=== PATIENT | male | born 1960 | race Caucasian/White ===

== ENCOUNTER 2018-12-13 09:08 | Emergency (ER) | payer MEDICARE, MEDICAID ==
[~2018-12-13] VITALS: Ht 172.7 cm; Wt 70.0 kg
[~2018-12-13 09:08] MED LIST: HYDR-4353 PO; INSU100V9 SQ; MORP-92 PO
--- NOTE | 2018-12-13 09:30 | NUR ---
patient was on ladder about 10 feet high using a pole saw when a branch fell and hit ladder out from underneath him. 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
--- NOTE | 2018-12-13 09:50 | NUR ---
discussed pain control with md; order for ibuprofen received
--- NOTE | 2018-12-13 09:51 | NUR ---
ICE PACKS TO RIGHT AND LEFT ANKLE AND LEFT KNEE: ICE PACKS PLACED DR AMOS INFORMED THAT PATIENT IS NOW COMPLAINING OF LEFT KNEE PAIN
[2018-12-13] MEDS ORDERED: ibuprofen tablet 400 MG TABLET PO ONE (09:55)
[2018-12-13] MEDS ORDERED: ibuprofen 200mg tablet PO ONE (10:00)
--- NOTE | 2018-12-13 10:32 | NUR ---
orthotist prosthetist here to place homero splint to right lower leg; left leg to be placed in boot and crutches provided: patient has "lots of experience" with crutches patient has strong regular pulses bilareally in his feet: both dp and pt. patient able to wiggle toes on both feet and discriminate betweenfeet and areas of each foot despite his neuropathy
[2018-12-13] MEDS ORDERED: ACET-3068 PO (11:01)
[2018-12-13 11:20] VITALS: BP 141/79
== END 2018-12-13 11:27 | disposition home or self-care (01) ==
LOC: ER 09:09
DX: S82.851A Displaced trimalleolar fracture of right lower leg, initial encounter for closed fracture (principal); S82.892A Other fracture of left lower leg, initial encounter for closed fracture; E78.00 Pure hypercholesterolemia, unspecified; I10 Essential (primary) hypertension; K21.9 Gastro-esophageal reflux disease without esophagitis; E11.9 Type 2 diabetes mellitus without complications; F32.9 Major depressive disorder, single episode, unspecified; Z90.49 Acquired absence of other specified parts of digestive tract; Z87.11 Personal history of peptic ulcer disease; Z91.030 Bee allergy status; Z79.899 Other long term (current) drug therapy; Z79.4 Long term (current) use of insulin; W11.XXXA Fall on and from ladder, initial encounter; Y93.89 Activity, other specified; Y92.89 Other specified places as the place of occurrence of the external cause; Y99.8 Other external cause status
CPT/HCPCS: 29515; 73610; 99284

== ENCOUNTER 2020-09-01 14:45 | Emergency (ER) | payer MEDICARE, MEDICAID ==
[~2020-09-01] VITALS: Ht 170.2 cm; Wt 70.0 kg
[2020-09-01 14:57] VITALS: BP 101/54
[2020-09-01] MEDS ORDERED: LIDOcaine 1% W/epiNEPHrine 1:200,000 10ml vial IJ ONE (15:55)
== END 2020-09-01 16:45 | disposition home or self-care (01) ==
LOC: ER 14:47
DX: S81.012A Laceration without foreign body, left knee, initial encounter (principal); E11.42 Type 2 diabetes mellitus with diabetic polyneuropathy; E78.00 Pure hypercholesterolemia, unspecified; I10 Essential (primary) hypertension; K21.9 Gastro-esophageal reflux disease without esophagitis; F17.200 Nicotine dependence, unspecified, uncomplicated; F32.9 Major depressive disorder, single episode, unspecified; Z86.19 Personal history of other infectious and parasitic diseases; Z87.11 Personal history of peptic ulcer disease; Z90.89 Acquired absence of other organs; Z72.89 Other problems related to lifestyle; Z91.030 Bee allergy status; Z79.899 Other long term (current) drug therapy
CPT/HCPCS: 12002; 99282

== ENCOUNTER 2021-07-24 03:08 | Inpatient (IN) | payer MEDICARE, MEDICAID ==
[~2021-07-24] VITALS: Ht 172.7 cm; Wt 80.5 kg
[2021-07-24] VITALS (35 sets, daily range): BP systolic 73–165; BP diastolic 41–78
[2021-07-24] MEDS ORDERED: normal saline 1000ml 1,000 ML IV ONE (03:25)
[2021-07-24] MEDS ORDERED: CefTRIAXone/D5W-Rocephin 1gm 50 ML IV ONE (03:30)
[2021-07-24 03:46] LABS: BASOPHILS # (AUTO) 0.1 X10'3 (0-0.2); BASOPHILS % (AUTO) 0.3 % (0-1)
[2021-07-24 03:47] LABS: APTT 64 SECONDS (22-32)
[2021-07-24 03:48] LABS: ALANINE AMINOTRANSFERASE 19 U/L (12-78); ALBUMIN 2.4 G/DL (3.4-5.0); ALKALINE PHOSPHATASE 71 IU/L (46-116); ANION GAP 37 (8-16); ASPARTATE AMINO TRANSFERASE 20 U/L (10-37); BILIRUBIN,TOTAL 0.7 MG/DL (0.1-1.0); BLOOD UREA NITROGEN 69 MG/DL (7-18); BUN/CREATININE RATIO 23.6 (5.4-32.0); CALCIUM 8.5 MG/DL (8.5-10.1); CHLORIDE 77 MMOL/L (99-107); CREATININE 2.92 MG/DL (0.60-1.10); EOSINOPHILS % (AUTO) 0.2 % (0-6); LYMPHOCYTES # (AUTO) 1.4 X10'3 (1.1-4.8); LYMPHOCYTES % (AUTO) 6.5 % (21-51); MONOCYTES # (AUTO) 1.9 X10'3 (0-0.9); MONOCYTES % (AUTO) 8.3 % (2-12); NEUTROPHILS # (AUTO) 18.9 X10'3 (1.8-7.7); NEUTROPHILS % (AUTO) 84.7 % (42-75); PLATELET COUNT 172 X10'3 (140-440); POTASSIUM 4.2 MMOL/L (3.5-5.1); SODIUM 121 MMOL/L (135-145); TOTAL PROTEIN 4.8 G/DL (6.4-8.2); WHITE BLOOD COUNT 22.4 X10'3 (4.5-11.0); eGFR 22 ML/MIN
[2021-07-24] MEDS ORDERED: NORepinephrine inj. 8 MG in dextrose 5%-water 242 ML IV SCH (03:55)
[2021-07-24] MEDS ORDERED: NORepinephrine 8mg/ 250ml NS 250 ML IV SCH (04:10)
[2021-07-24 04:15] LABS: GLUCOSE 1218 MG/DL (70-104); TOTAL CARBON DIOXIDE 6.9 MMOL/L (24-32)
[2021-07-24] MEDS ORDERED: potassium CL 20mEq in D5-1/2NS 1,000 ML IV PRN (04:15)
[2021-07-24 04:16] LABS: HEMATOCRIT 14.2 % (42.0-52.0); HEMOGLOBIN 4.6 g/dl (14.0-17.9); MEAN CORPUSCULAR HEMOGLOBIN 24.3 PG (27.0-31.0); MEAN CORPUSCULAR HGB CONC 32.3 g/dL (33.0-36.5); MEAN CORPUSCULAR VOLUME 75.1 FL (78-98); RED CELL DISTRIBUTION WIDTH 18.2 % (11.5-14.5)
[2021-07-24 04:32] LABS: ABG BASE EXCESS -26.9 mmol/L (-2.0-2.0); ABG HCO3 5.2 mmol/L (22.0-26.0); ABG OXYGEN SATURATION 99.7 % (94-97); ABG PCO2 (T) 35.3 mmHg (35.0-48.0); ABG PO2 (T) 446.5 mmHg (75.0-100.0); ALLEN'S TEST POSITIVE; FCOHb 1.4 % (0.0-3.9); FMetHb 0.7 % (0.0-1.5); FO2Hb 97.6 % (94-97); PATIENT TEMPERATURE 36.1; PEEP 5 cm H2O; RESPIRATORY RATE 14 b/min; TIDAL VOLUME 450 mL; TOTAL HEMOGLOBIN 4.9 G/dl (14.0-18.0)
[2021-07-24] MEDS ORDERED: sodium bicarbonate (8.4%) inj. 1 MEQ/ML ML IV ONE (04:45)
[2021-07-24] MEDS ORDERED: iohexol 350MG/ML 100ml bottle IV ONE (04:46)
[2021-07-24] MEDS: normal saline 1000ml 1,000 ML IV SCH ×2 (04:52→05:28)
[2021-07-24] MEDS ORDERED: etomidate 2mg/ml inj. IV ONE (05:00)
[2021-07-24] MEDS ORDERED: rocuronium 10mg/ml inj IV ONE ×2 (05:00→08:00)
[2021-07-24] MEDS ORDERED: FLO0.4C PO (05:05)
[2021-07-24] MEDS ORDERED: HYDR-3972 PO (05:05)
[2021-07-24] MEDS ORDERED: OMEP20CA15 PO (05:05)
[2021-07-24] MEDS ORDERED: METF-438 PO (05:05)
[2021-07-24] MEDS ORDERED: LISI5TAB22 PO (05:05)
[2021-07-24] MEDS: sodium bicarbonate (8.4%) inj. 150 MEQ in sodium chloride 0.45% 1,000 ML IV SCH ×3 (05:11→19:31)
[2021-07-24] MEDS: midazolam 100mg in NS 100ml 100 ML IV PRN ×2 (05:15→17:04)
[2021-07-24] MEDS: FENTANYL-0.9 % NACL/PF 100 ML IV PRN ×4 (05:15→23:15)
[2021-07-24] MEDS: octreotide inj. 500 MCG in normal saline 100ml IV soln 100 ML IV SCH ×4 (05:17→23:34)
[2021-07-24] MEDS: insulin regular, human U-100 3ml vial - multi-dose IV PRN ×2 (05:54→12:39)
[2021-07-24] MEDS ORDERED: pantoprazole 40MG/NS 100ML BAG 100 ML IV ONE ×2 (05:55→08:00)
[2021-07-24] MEDS: Insulin Reg/NS 100units/100mL 100 ML IV SCH ×2 (06:02→14:09)
[2021-07-24 06:27] LABS: ANISOCYTOSIS 2+; PLATELET ESTIMATE NORMAL; POIKILOCYTOSIS 1+; TOTAL CELLS COUNTED 100
[2021-07-24 06:28] LABS: ELLIPTOCYTES FEW
--- NOTE | 2021-07-24 06:45 | NUR ---
ASSUMED CARE OF PT.
--- NOTE | 2021-07-24 07:15 | NUR ---
AT BEDSIDE TO PLACE DREW CATH
--- NOTE | 2021-07-24 07:59 | NUR ---
PT SVT 184. VERBAL ORDER ADENOSINE 6MG PER DR. SIMMONS.
--- NOTE | 2021-07-24 07:59 | NUR ---
ADENOSINE 6MG GIVEN HR 184
[2021-07-24] MEDS ORDERED: sod chloride 0.9% 10ml flush syringe IV ONE ×2 (08:00)
[2021-07-24] MEDS ORDERED: glucagon, human recombinant 1mg kit SUBCUT PRN (08:00)
[2021-07-24] MEDS ORDERED: adenosine 3mg/ml 2ml vial IV ONE (08:00)
[2021-07-24] MEDS ORDERED: morphine 4 MG/ML inj SYRINge IV PRN (08:00)
[2021-07-24] MEDS ORDERED: magnesium hydroxide 30ml (MOM) UD suspension PO PRN (08:00)
[2021-07-24] MEDS ORDERED: ondansetron/PF 4mg/2ml inj IV PRN (08:00)
[2021-07-24] MEDS ORDERED: dextrose 50%-water 50ml dispensing syringe IV PRN ×2 (08:00)
[2021-07-24] MEDS ORDERED: sodium bicarbonate (8.4%) 1 mEq/ml syringe ONE (08:00)
[2021-07-24] MEDS ORDERED: famotidine/PF 10 mg/ml inj IV SCH (08:00)
[2021-07-24] MEDS ORDERED: LIDOcaine 2% 10ml TOPICAL JELLY (Urojet) TP ONE (08:00)
[2021-07-24] MEDS ORDERED: MESSAGE TO PHARMACY PO ONE (08:00)
[2021-07-24] MEDS ORDERED: potassium Cl 20 mEq SR tablet PO PRN (08:00)
[2021-07-24] MEDS ORDERED: morphine 2 MG/ML inj. syringe IV PRN (08:00)
[2021-07-24] MEDS ORDERED: DEXTROSE 15 GM of carb/4 tabs (each vial/BOTTLE has 4 tablets) PO PRN ×2 (08:00)
[2021-07-24] MEDS: K and/or MAG REPLACEMENT MC SCH (08:00)
[2021-07-24] MEDS ORDERED: acetaminophen 325mg tablet PO PRN (08:00)
[2021-07-24] MEDS ORDERED: etomidate 2mg/ml inj. ONE (08:00)
[2021-07-24] MEDS ORDERED: NORepinephrine 1 mg/ml inj IV ONE (08:00)
--- NOTE | 2021-07-24 08:02 | NUR ---
LAB CALLED TO INFORM THAT PATIENTS GLUCOSE IS OVER 1000, NURSE MADE AWARE DURING AN EMERGENT TIME IN THE ROOM, WILL COQUILLE BACK TO COMMUNICATE AGAIN
--- NOTE | 2021-07-24 08:19 | NUR ---
LAB CALLED WITH ACCURATE GLUCOSE AT 1040, NURSE IS AWARE
[2021-07-24] MEDS ORDERED: EPOETIN ALFA-EPBX 20,000 UNIT/ML 1 ML MDV IV ONE (08:40)
[2021-07-24] MEDS ORDERED: albumin (human) 25% 100ml IV 100 ML IV PRN (08:40)
[2021-07-24] MEDS ORDERED: heparin 1,000 units/ml 10ml inj HE ONE ×2 (08:45)
--- NOTE | 2021-07-24 09:00 | NUR ---
0900 Received patient from ER. Placed patient on continuous analytics leader. ST noted along low BP. Increased patient's Levophed to 0.8 mcg/min. Patient is unarousable on minimal sedation. Patient is intubated on AC mode with O2 sats of 100%. OGT place on LWIS with coffee ground drainage. Tiwari tp gravity with yellow drainage. Bed in lowest position, all safety measures in place. 0930 Dr. Wren at bedside ready fro Toshia insertion due to low BP,and maxed out on pressors. 0945 race steward at bedside ready for dialysis. 1130 Patient's Family at bedside, MD update family and aware of patient's status. 0100 Patient's vitals stabilizing. 0130 GI MD at bedside to evaluate patient, planning on scoping patient in AM if stable. 0200 Continue monitoring patient's BG 0500 Patient's vitals stabilizing.
[2021-07-24] MEDS ORDERED: epiNEPHrine 1 mg/ml inj ONE (10:20)
[2021-07-24 10:37] LABS: ABG BASE EXCESS -15.5 mmol/L (-2.0-2.0); ABG HCO3 13.8 mmol/L (22.0-26.0); ABG OXYGEN SATURATION 98.8 % (94-97); ABG PCO2 (T) 48.3 mmHg (35.0-48.0); ABG PO2 (T) 215.6 mmHg (75.0-100.0); FCOHb 0.3 % (0.0-3.9); FMetHb 0.4 % (0.0-1.5); FO2Hb 98.1 % (94-97); PEEP 5 cm H2O; RESPIRATORY RATE 14 b/min; TIDAL VOLUME 450 mL; TOTAL HEMOGLOBIN 9.1 G/dl (14.0-18.0)
[2021-07-24 11:09] LABS: BASOPHILS # (AUTO) 0.1 X10'3 (0-0.2); BASOPHILS % (AUTO) 0.2 % (0-1); EOSINOPHILS % (AUTO) 0 % (0-6); LYMPHOCYTES # (AUTO) 1.3 X10'3 (1.1-4.8); LYMPHOCYTES % (AUTO) 3.8 % (21-51); MEAN PLATELET VOLUME 8.8 FL (7.4-10.4); MONOCYTES # (AUTO) 1.5 X10'3 (0-0.9); MONOCYTES % (AUTO) 4.4 % (2-12); NEUTROPHILS # (AUTO) 31.8 X10'3 (1.8-7.7); NEUTROPHILS % (AUTO) 91.6 % (42-75); PLATELET COUNT 120 X10'3 (140-440); RED BLOOD COUNT 3.13 X10'6 (4.70-6.10)
[2021-07-24] MEDS ORDERED: phenylephrine inj 50 MG in normal saline 250ml IV soln 250 ML IV SCH (11:20)
[2021-07-24 11:23] LABS: ALBUMIN 2.4 G/DL (3.4-5.0); ANION GAP 32 (8-16); BLOOD UREA NITROGEN 65 MG/DL (7-18); CHLORIDE 82 MMOL/L (99-107); MAGNESIUM 2.8 MG/DL (1.5-2.4); SODIUM 125 MMOL/L (135-145); eGFR 20 ML/MIN
[2021-07-24 11:29] LABS: HEMATOCRIT 26.4 % (42.0-52.0); HEMOGLOBIN 8.3 g/dl (14.0-17.9); MEAN CORPUSCULAR VOLUME 84.2 FL (78-98)
[2021-07-24 11:30] LABS: MEAN CORPUSCULAR HEMOGLOBIN 26.4 PG (27.0-31.0); MEAN CORPUSCULAR HGB CONC 31.4 g/dL (33.0-36.5); RED CELL DISTRIBUTION WIDTH 18.6 % (11.5-14.5)
[2021-07-24 11:31] LABS: WHITE BLOOD COUNT 34.8 X10'3 (4.5-11.0)
[2021-07-24 11:43] LABS: PHOSPHORUS 12.8 MG/DL (2.3-4.5)
[2021-07-24 11:46] LABS: GLUCOSE 1005 MG/DL (70-104); TOTAL CARBON DIOXIDE 10.9 MMOL/L (24-32)
[2021-07-24] MEDS: NORepinephrine inj. 32 MG in normal saline 250ml IV soln 218 ML IV SCH ×2 (12:02→17:07)
[2021-07-24] MEDS: vasopressin inj. 40 UNIT in dextrose 5%-water 50ml 38 ML IV SCH ×3 (12:03→23:14)
--- NOTE | 2021-07-24 12:27 | NUR ---
Initial: Pt admit for GIB with anemia, DKA, and lactic acidosis with h/o EtOH and liver cirrhosis. Per ED report pt became hypotensive and required intubation. NGT placed for LIS and 1.5 L coffee ground emesis was extracted per EMR. Per MD note pt to remain NPO at this time, TF recommendations below for if expected prolonged intubation and to receive nutrition support. Noted pt with altered labs with BG 1218 mg/dL on admit and elevated BUN, creatinine, phos, and mag. A1c pending and bag filler has been consulted. Pt to receive dialysis per nephrology note. No documented BM, pt just admit today. Pending physical assessment. Will continue to follow closely and make recommendations as appropriate. Recommendations: 1) IF TF, continuous Vital AF with 65 mL/hr goal rate to provide 1560 mL total volume/day, 1872 kcal, 117 g protein, and 1265 mL water. 2) IF TF and decreased kidney function persists, consider Nepro 1.8 with 45 mL/hr goal rate to provide 1080 mL total volume/day, 1944 kcal, 87 g protein, and 785 mL water 3) IF TF, additional water flush per MD given altered renal function with low serum Na and HD 4) IF TF, prealbumin q Monday/; Daily scaled weights 5) Bowel care per MD 6) DM education once stable following extubation; A1c pending though BG 1218 mg/dL on admit with DKA Addendum: 07/24/21 at [address] Amended: Links added.
[2021-07-24] MEDS: pantoprazole 40MG/NS 100ML BAG 100 ML IV SCH ×4 (13:23→23:45)
[2021-07-24] MEDS: hydrocortisone sod succ/PF 100mg/2ml inj. IV SCH ×3 (13:24→19:55)
[2021-07-24] MEDS ORDERED: SITA25TA3 PO (14:55)
[2021-07-24] MEDS ORDERED: dextrose 5%-1/2 normal saline 1,000 ML IV SCH (15:05)
[2021-07-24 15:08] LABS: ALBUMIN 2.8 G/DL (3.4-5.0); ANION GAP 16 (8-16); BLOOD UREA NITROGEN 35 MG/DL (7-18); CALCIUM 6.7 MG/DL (8.5-10.1); CHLORIDE 98 MMOL/L (99-107); CREATININE 1.75 MG/DL (0.60-1.10); GLUCOSE 333 MG/DL (70-104); POTASSIUM 3.4 MMOL/L (3.5-5.1); SODIUM 136 MMOL/L (135-145); TOTAL CARBON DIOXIDE 22.2 MMOL/L (24-32); eGFR 40 ML/MIN
[2021-07-24] MEDS: ringers solution, lacted 1,000 ML IV SCH ×2 (16:10→22:44)
[2021-07-24] MEDS: insulin Lispro (HumaLOG) vial - multi-dose SQ SCH ×2 (16:30→20:16)
[2021-07-24 18:30] LABS: HEMOGLOBIN A1C 10.9 % (4.5-6.2)
[2021-07-24 20:25] LABS: BASOPHILS % (AUTO) 0.2 % (0-1); CLARITY,URINE CLOUDY (Clear); EOSINOPHILS # (AUTO) 0.2 X10'3 (0-0.9); GLUCOSE, URINE 250 mg/dl (Neg); KETONES,URINE 15 mg/dl (Neg); LEUKOCYTE ESTERASE ,URINE NEGATIVE (Neg); LYMPHOCYTES % (AUTO) 15.2 % (21-51); MONOCYTES # (AUTO) 0.8 X10'3 (0-0.9); MONOCYTES % (AUTO) 5.9 % (2-12); NITRITES, URINE NEGATIVE (Neg); OCCULT BLOOD,URINE MODERATE (Neg); PROTEIN,URINE 100 mg/dl (Neg); UROBILINOGEN,URINE 0.2 E.U/dL (0.2-1.0)
[2021-07-24 20:26] LABS: COLOR,URINE AMBER (Yellow); EOSINOPHILS % (AUTO) 1.8 % (0-6); MEAN CORPUSCULAR HEMOGLOBIN 26.9 PG (27.0-31.0); MEAN CORPUSCULAR HGB CONC 33.9 g/dL (33.0-36.5); MEAN CORPUSCULAR VOLUME 79.5 FL (78-98); NEUTROPHILS # (AUTO) 10.3 X10'3 (1.8-7.7); NEUTROPHILS % (AUTO) 76.9 % (42-75); RED BLOOD COUNT 2.03 X10'6 (4.70-6.10); RED CELL DISTRIBUTION WIDTH 18.2 % (11.5-14.5); UA COLLECTION TYPE CLN CATCH MIDSTREAM; WHITE BLOOD COUNT 13.4 X10'3 (4.5-11.0)
[2021-07-24 20:39] LABS: AMORPHOUS URATES 3+; BACTERIA,URINE NONE SEEN /HPF (Neg); MUCUS STRANDS NONE SEEN /LPF (Neg); SQUAMOUS EPITHELIAL CELL,UR FEW /LPF (FEW); WBC,URINE 0-4 /HPF (0-4)
[2021-07-24 20:57] LABS: HEMOGLOBIN 5.5 g/dl (14.0-17.9)
[2021-07-24 20:58] LABS: HEMATOCRIT 16.2 % (42.0-52.0); PLATELET COUNT 19 X10'3 (140-440)
[2021-07-24] MEDS ORDERED: desmopressin inj. 20 MCG in normal saline 100ml IV soln 100 ML IV ONE (23:45)
[2021-07-25] VITALS (38 sets, daily range): BP systolic 95–162; BP diastolic 54–82
[2021-07-25] MEDS ORDERED: phytonadione inj. 5 MG in normal saline 100ml IV soln 100 ML IV ONE ×2
--- NOTE | 2021-07-25 01:11 | NUR ---
61 year old male, admitted 07/24/2021, day zero of hospitalization, full code, no isolation, allergies to Honey bee venom. pt has bilateral soft wrist restraints, orders and documentation in accordance with facilities policies and procedures. Consults to GI got UGIB and renal LA of 30 Glucose of >1200. This patient presents with multiple comorbidities including Hep C, liver cirrhosis, uncontrolled DM who presents with metformin induced lactic acidosis, DKA and BG >1200 and an upper GI bleed, hypotensive and severely anemic, Hbg 4.8. Pt was transfused 2 units PRBC in ICU. He was stabilized in the ER and intubated and brought up to the CICU where lines were placed and dialysis started. Dr. Rose of was called for an urgent EGD and Dr. Gr consulted to aid in Dialysis. Currently, patient was febrile of 38.5, Tylenol given via OGT. Temp now 37.6. Pt CRAWFORD cultured. Sedated on Fentanyl at 200 mcgs/hr (20 ml's/hr), Versed at 10 mg/ hr (10 ml's/hr). Pupils sluggish, equal reactive to light. GCS 7, RASS-3. HR 81 SR no ectopy, BP 146/70, supported on Levophed at .24 mcgs/kg/min (7.15 ml/hr), titrating down. And Vasopressin at .04 units/hour (2.4mls/hr). Trace generalized edema. weak pulses. Abraham-Trak monitored Q 4 hours via right groin A-Line. All IVF infusing via Right groin TLC. All ports f/p, good blood return, dressing CDI. Pt has LEJ #18 infusing HCO3- gtt at 150 ml's hr. At 20:00 CBC sent to lab, Hgb 5.5, transfused 2 U PRBC, DDAVP ordered and infused and Aquamephyton ordered infused. All orders obtained from Dr Tarango. Pt remains intubated with 8.0 ETT, 24 cm, Vent AC/PRVC, rate 14, TV 450, FIO2 40% PEEP 5. LA 30. ABG's grossly scewed, BiCarb gtt infusing at 150 ml's hr. LR 150 ml's hr. Suction PRN for minimal to no secretions. What secretions were obtained were sent to lab for C&S, Tinoco secretions. Pt tolerating vent settings well. Breath sounds, clear, diminished, equal, symmetrical, non labored. Pt tested COVID NEG. Hypoactive bowel sounds, soft, small, rounded, mild distention. NPO. OGT to LIS, drained on day shift coffee ground material, currently draining nothing, despite flush with 30 cc H2O. Pt is currently on Protonix gtt at 8 mg/hr (20 ml's/hr) and Sandostatin at 50 mcgs/hr (10ml's/hr). Glucose checks Q 6 hours with Humalog coverage. Tiwari draining little to no urine, Anuric. Pt had 15cc out of Tiwari and sent for analysis. UA reveals Protein 100, Glucose 250, Ketones 15, OB moderate. Presence of Left groin Daniel Cath, pt had emergent dialysis on day shift removed 1000 ml's. Skin intact. Pt remains safe, continue to monitor. Plan is to do UGI at 0800 07/25/2021. Addendum: 07/25/21 at 0602 by Candido Arnold RN 0530: AM labs Mg+ 1.4 replaced with 2 gms. Mag. Calcium 6.5, replaced with 3 gms Calcium Gluconate. Plts 20 infused 1 unit plts. Discontinued LR and Bicarb gtt. reordered LA and CBC, LA 4.7 Pending CBC results. Will pass onto next shift
[2021-07-25] MEDS: hydrocortisone sod succ/PF 100mg/2ml inj. IV SCH ×4 (02:24→18:52)
[2021-07-25] MEDS: midazolam 100mg in NS 100ml 100 ML IV PRN ×3 (02:25→18:53)
[2021-07-25 02:26] LABS: ABG BASE EXCESS 3.1 mmol/L (-2.0-2.0); ABG HCO3 27.4 mmol/L (22.0-26.0); ABG PCO2 (T) 41.2 mmHg (35.0-48.0); ABG PO2 (T) 70.9 mmHg (75.0-100.0); FCOHb 0.6 % (0.0-3.9); FO2Hb 93.4 % (94-97); PATIENT TEMPERATURE 37.4; PEEP 5 cm H2O; RESPIRATORY RATE 14 b/min; TIDAL VOLUME 450 mL; TOTAL HEMOGLOBIN 8.7 G/dl (14.0-18.0)
[2021-07-25] MEDS: insulin Lispro (HumaLOG) vial - multi-dose SQ SCH ×4 (02:28→20:34)
[2021-07-25] MEDS: sodium bicarbonate (8.4%) inj. 150 MEQ in sodium chloride 0.45% 1,000 ML IV SCH (02:31)
[2021-07-25 02:49] LABS: BASOPHILS % (AUTO) 0.1 % (0-1); EOSINOPHILS % (AUTO) 0.1 % (0-6); HEMATOCRIT 23.9 % (42.0-52.0); LYMPHOCYTES % (AUTO) 7.3 % (21-51); MEAN CORPUSCULAR HEMOGLOBIN 27.6 PG (27.0-31.0); MEAN CORPUSCULAR HGB CONC 33.5 g/dL (33.0-36.5); MEAN CORPUSCULAR VOLUME 82.4 FL (78-98); MEAN PLATELET VOLUME 8.9 FL (7.4-10.4); MONOCYTES % (AUTO) 7.8 % (2-12); NEUTROPHILS # (AUTO) 11.3 X10'3 (1.8-7.7); NEUTROPHILS % (AUTO) 84.7 % (42-75); RED CELL DISTRIBUTION WIDTH 17.5 % (11.5-14.5); WHITE BLOOD COUNT 13.4 X10'3 (4.5-11.0)
[2021-07-25 03:02] LABS: ALBUMIN 2.6 G/DL (3.4-5.0); ANION GAP 9 (8-16); BLOOD UREA NITROGEN 47 MG/DL (7-18); BUN/CREATININE RATIO 20.5 (5.4-32.0); CALCIUM 6.5 MG/DL (8.5-10.1); CHLORIDE 97 MMOL/L (99-107); CREATININE 2.29 MG/DL (0.60-1.10); GLUCOSE 261 MG/DL (70-104); MAGNESIUM 1.4 MG/DL (1.5-2.4); PHOSPHORUS 1.6 MG/DL (2.3-4.5); POTASSIUM 5.1 MMOL/L (3.5-5.1); SODIUM 133 MMOL/L (135-145); TOTAL CARBON DIOXIDE 26.6 MMOL/L (24-32); eGFR 29 ML/MIN
[2021-07-25 03:05] LABS: PLATELET COUNT 20 X10'3 (140-440)
[2021-07-25] MEDS: pantoprazole 40MG/NS 100ML BAG 100 ML IV SCH ×4 (03:43→18:53)
[2021-07-25] MEDS: FENTANYL-0.9 % NACL/PF 100 ML IV PRN ×6 (03:56→23:58)
[2021-07-25] MEDS: ringers solution, lacted 1,000 ML IV SCH (04:22)
[2021-07-25] MEDS ORDERED: magnesium 2GM in 50ml NS 50 ML IV ONE (04:50)
[2021-07-25] MEDS: CALCIUM GLUC 1gm/50ml NACL,iso 50 ML IV SCH ×2 (05:16→05:55)
[2021-07-25 05:56] LABS: BASOPHILS % (AUTO) 0 % (0-1); EOSINOPHILS % (AUTO) 0 % (0-6); HEMOGLOBIN 7.5 g/dl (14.0-17.9); LYMPHOCYTES # (AUTO) 0.6 X10'3 (1.1-4.8); LYMPHOCYTES % (AUTO) 6.6 % (21-51); MEAN CORPUSCULAR HEMOGLOBIN 28.1 PG (27.0-31.0); MEAN CORPUSCULAR HGB CONC 34.5 g/dL (33.0-36.5); MEAN CORPUSCULAR VOLUME 81.3 FL (78-98); MEAN PLATELET VOLUME 12.4 FL (7.4-10.4); MONOCYTES # (AUTO) 0.6 X10'3 (0-0.9); MONOCYTES % (AUTO) 6.6 % (2-12); NEUTROPHILS # (AUTO) 7.5 X10'3 (1.8-7.7); NEUTROPHILS % (AUTO) 86.8 % (42-75); RED BLOOD COUNT 2.66 X10'6 (4.70-6.10); RED CELL DISTRIBUTION WIDTH 17.9 % (11.5-14.5); WHITE BLOOD COUNT 8.6 X10'3 (4.5-11.0)
[2021-07-25 06:22] LABS: HEMATOCRIT 21.7 % (42.0-52.0)
[2021-07-25 06:23] LABS: PLATELET COUNT 9 X10'3 (140-440)
[2021-07-25 06:26] LABS: ANISOCYTOSIS 1+; PLATELET ESTIMATE DECREASED; TOTAL CELLS COUNTED 100
[2021-07-25 06:27] LABS: POLYCHROMASIA 1+
[2021-07-25] MEDS ORDERED: fentaNYL/PF 50MCG/1 ML 2ML syringe ONE (07:14)
[2021-07-25] MEDS ORDERED: MIDAZolam 1 MG/ML 5ML VIAL ONE (07:14)
--- NOTE | 2021-07-25 07:35 | NUR ---
Diabetes consult: A1c 10.9 though pt remains intubated, DM ed not appropriate at this time. Addendum: 07/25/21 at [address] Amended: Links added.
[2021-07-25] MEDS: K and/or MAG REPLACEMENT MC SCH (08:00)
[2021-07-25] MEDS ORDERED: octreotide inj. 500 MCG in normal saline 100ml IV soln 97.5 ML IV SCH (08:46)
[2021-07-25] MEDS ORDERED: epiNEPHrine 0.1mg/ml 10ml syringe ONE (08:53)
[2021-07-25 09:45] LABS: BASOPHILS % (AUTO) 0.1 % (0-1); HEMOGLOBIN 7.8 g/dl (14.0-17.9); MEAN CORPUSCULAR HEMOGLOBIN 27.8 PG (27.0-31.0); WHITE BLOOD COUNT 9.3 X10'3 (4.5-11.0)
[2021-07-25 09:47] LABS: EOSINOPHILS % (AUTO) 0.1 % (0-6); LYMPHOCYTES # (AUTO) 0.9 X10'3 (1.1-4.8); LYMPHOCYTES % (AUTO) 10.2 % (21-51); MEAN CORPUSCULAR HGB CONC 33.8 g/dL (33.0-36.5); MEAN CORPUSCULAR VOLUME 82.3 FL (78-98); MEAN PLATELET VOLUME 8.1 FL (7.4-10.4); MONOCYTES % (AUTO) 10.6 % (2-12); NEUTROPHILS # (AUTO) 7.4 X10'3 (1.8-7.7); RED CELL DISTRIBUTION WIDTH 17.8 % (11.5-14.5)
[2021-07-25 09:55] LABS: PLATELET COUNT 22 X10'3 (140-440)
[2021-07-25] MEDS: octreotide inj. 500 MCG in normal saline 100ml IV soln 97.5 ML IV SCH ×2 (10:03→16:36)
[2021-07-25] MEDS: NORepinephrine 8mg/ 250ml NS 250 ML IV SCH (10:05)
[2021-07-25 12:51] LABS: ALANINE AMINOTRANSFERASE 317 U/L (12-78); ALBUMIN 2.5 G/DL (3.4-5.0); ALBUMIN/GLOBULIN RATIO 1.4 (1.1-1.5); ALKALINE PHOSPHATASE 49 IU/L (46-116); ASPARTATE AMINO TRANSFERASE 741 U/L (10-37); BLOOD UREA NITROGEN 58 MG/DL (7-18); BUN/CREATININE RATIO 20.9 (5.4-32.0); CALCIUM 6.9 MG/DL (8.5-10.1); CREATININE 2.78 MG/DL (0.60-1.10); GLUCOSE 291 MG/DL (70-104); MAGNESIUM 2.1 MG/DL (1.5-2.4); PHOSPHORUS 3.5 MG/DL (2.3-4.5); TOTAL CARBON DIOXIDE 28.5 MMOL/L (24-32); TOTAL PROTEIN 4.3 G/DL (6.4-8.2); eGFR 23 ML/MIN
[2021-07-26] VITALS (34 sets, daily range): BP systolic 84–166; BP diastolic 50–79
[2021-07-26] MEDS: insulin Lispro (HumaLOG) vial - multi-dose SQ SCH ×3 (02:10→13:52)
[2021-07-26] MEDS: pantoprazole 40MG/NS 100ML BAG 100 ML IV SCH ×5 (02:10→19:32)
[2021-07-26] MEDS: hydrocortisone sod succ/PF 100mg/2ml inj. IV SCH ×4 (02:11→19:33)
[2021-07-26 03:40] LABS: ALBUMIN 2.3 G/DL (3.4-5.0); BLOOD UREA NITROGEN 73 MG/DL (7-18); BUN/CREATININE RATIO 21.2 (5.4-32.0); CALCIUM 6.8 MG/DL (8.5-10.1); CHLORIDE 100 MMOL/L (99-107); CREATININE 3.45 MG/DL (0.60-1.10); GLUCOSE 269 MG/DL (70-104); MAGNESIUM 2.3 MG/DL (1.5-2.4); PHOSPHORUS 3.3 MG/DL (2.3-4.5); POTASSIUM 3.8 MMOL/L (3.5-5.1); SODIUM 135 MMOL/L (135-145); eGFR 18 ML/MIN
[2021-07-26 03:42] LABS: ANION GAP 8 (8-16)
[2021-07-26 03:53] LABS: HEMOGLOBIN 7.2 g/dl (14.0-17.9); MONOCYTES # (AUTO) 0.6 X10'3 (0-0.9)
[2021-07-26 03:54] LABS: BASOPHILS % (AUTO) 0.2 % (0-1); EOSINOPHILS % (AUTO) 0.1 % (0-6); LYMPHOCYTES # (AUTO) 0.6 X10'3 (1.1-4.8); LYMPHOCYTES % (AUTO) 7.7 % (21-51); MEAN CORPUSCULAR HEMOGLOBIN 27.5 PG (27.0-31.0); MEAN CORPUSCULAR HGB CONC 33.6 g/dL (33.0-36.5); MEAN CORPUSCULAR VOLUME 81.7 FL (78-98); MEAN PLATELET VOLUME 9.5 FL (7.4-10.4); NEUTROPHILS # (AUTO) 7.1 X10'3 (1.8-7.7); RED BLOOD COUNT 2.61 X10'6 (4.70-6.10); RED CELL DISTRIBUTION WIDTH 18.2 % (11.5-14.5); WHITE BLOOD COUNT 8.4 X10'3 (4.5-11.0)
[2021-07-26] MEDS ORDERED: vasopressin inj. 40 UNIT in dextrose 5%-water 50ml 38 ML IV PRN (03:58)
[2021-07-26 04:19] LABS: HEMATOCRIT 21.4 % (42.0-52.0); PLATELET COUNT 19 X10'3 (140-440)
[2021-07-26] MEDS ORDERED: calcium chloride 100 MG/1 ML inj IV ONE ×2 (04:40)
[2021-07-26] MEDS: midazolam 100mg in NS 100ml 100 ML IV PRN ×2 (05:17→19:33)
[2021-07-26] MEDS: NORepinephrine 8mg/ 250ml NS 250 ML IV SCH (05:37)
[2021-07-26] MEDS: K and/or MAG REPLACEMENT MC SCH (07:30)
[2021-07-26] MEDS ORDERED: EPOETIN ALFA-EPBX 20,000 UNIT/ML 1 ML MDV IV ONE (08:00)
[2021-07-26] MEDS ORDERED: heparin 1,000 units/ml 10ml inj HE ONE ×2 (08:00)
[2021-07-26] MEDS ORDERED: albumin (Human) 5% 250ml 250 ML IV PRN (08:00)
[2021-07-26] MEDS ORDERED: albumin (human) 25% 100ml IV 100 ML IV PRN (08:00)
[2021-07-26 08:53] LABS: POTASSIUM 4.4 MMOL/L (3.3-5.1)
[2021-07-26] MEDS ORDERED: MULTIVIT-MIN/FERROUS GLUCONATE 9 MG/15 ML LIQUID NG ONE (11:35)
[2021-07-26] MEDS: FENTANYL-0.9 % NACL/PF 100 ML IV PRN ×2 (13:02→19:32)
[2021-07-26 15:39] LABS: ANION GAP 9 (8-16); CHLORIDE 96 MMOL/L (99-107); POTASSIUM 4.4 MMOL/L (3.5-5.1); SODIUM 133 MMOL/L (135-145)
[2021-07-26] MEDS: thiamine 100mg/ml 2ml inj. IV SCH (19:33)
[2021-07-26] MEDS: folic acid 1mg/0.2ml inj IV SCH (20:06)
[2021-07-26] MEDS ORDERED: doxazosin mesylate 2mg tablet NG SCH (21:00)
[2021-07-27] VITALS (38 sets, daily range): BP systolic 77–122; BP diastolic 47–71
[2021-07-27] MEDS: hydrocortisone sod succ/PF 100mg/2ml inj. IV SCH ×4 (01:37→20:41)
[2021-07-27] MEDS: pantoprazole 40MG/NS 100ML BAG 100 ML IV SCH ×5 (01:37→20:41)
[2021-07-27] MEDS: insulin Lispro (HumaLOG) vial - multi-dose SQ SCH ×2 (01:56→14:19)
[2021-07-27 02:42] LABS: BASOPHILS % (AUTO) 0.2 % (0-1); EOSINOPHILS % (AUTO) 0 % (0-6); HEMATOCRIT 22.4 % (42.0-52.0); HEMOGLOBIN 7.4 g/dl (14.0-17.9); LYMPHOCYTES # (AUTO) 0.6 X10'3 (1.1-4.8); LYMPHOCYTES % (AUTO) 8.8 % (21-51); MEAN CORPUSCULAR HEMOGLOBIN 27.4 PG (27.0-31.0); MEAN CORPUSCULAR HGB CONC 33.2 g/dL (33.0-36.5); MEAN CORPUSCULAR VOLUME 82.4 FL (78-98); MEAN PLATELET VOLUME 11.2 FL (7.4-10.4); MONOCYTES # (AUTO) 0.5 X10'3 (0-0.9); MONOCYTES % (AUTO) 7.2 % (2-12); NEUTROPHILS # (AUTO) 5.3 X10'3 (1.8-7.7); NEUTROPHILS % (AUTO) 83.8 % (42-75); RED BLOOD COUNT 2.72 X10'6 (4.70-6.10); RED CELL DISTRIBUTION WIDTH 18.8 % (11.5-14.5); WHITE BLOOD COUNT 6.3 X10'3 (4.5-11.0)
[2021-07-27 03:00] LABS: ALBUMIN 2.1 G/DL (3.4-5.0); ANION GAP 12 (8-16); BLOOD UREA NITROGEN 56 MG/DL (7-18); BUN/CREATININE RATIO 19.2 (5.4-32.0); CALCIUM 7.3 MG/DL (8.5-10.1); CHLORIDE 104 MMOL/L (99-107); CREATININE 2.92 MG/DL (0.60-1.10); GLUCOSE 152 MG/DL (70-104); PHOSPHORUS 2.4 MG/DL (2.3-4.5); POTASSIUM 3.4 MMOL/L (3.5-5.1); SODIUM 140 MMOL/L (135-145); eGFR 22 ML/MIN
[2021-07-27 03:08] LABS: PLATELET COUNT 11 X10'3 (140-440)
[2021-07-27] MEDS: potassium Cl 20 mEq SR tablet PO PRN ×2 (03:22→07:54)
[2021-07-27 03:28] LABS: ANISOCYTOSIS 2+; PLATELET ESTIMATE DECREASED
[2021-07-27 03:29] LABS: POLYCHROMASIA 1+
[2021-07-27 03:30] LABS: LARGE PLATELETS FEW; SCHISTOCYTES FEW
[2021-07-27 03:33] LABS: ABG HCO3 24.5 mmol/L (22.0-26.0); ABG OXYGEN SATURATION 92.3 % (94-97); ABG PCO2 (T) 21.8 mmHg (35.0-48.0); ABG PO2 (T) 50.5 mmHg (75.0-100.0); FCOHb 0.6 % (0.0-3.9); FMetHb 0.1 % (0.0-1.5); FO2Hb 91.7 % (94-97); PATIENT TEMPERATURE 35.8; PEEP 5 cm H2O; RESPIRATORY RATE 14 b/min; TIDAL VOLUME 450 mL; TOTAL HEMOGLOBIN 8.3 G/dl (14.0-18.0)
[2021-07-27] MEDS: NORepinephrine 8mg/ 250ml NS 250 ML IV SCH ×2 (03:43→13:00)
[2021-07-27 07:20] LABS: EOSINOPHILS % (AUTO) 0 % (0-6); HEMOGLOBIN 7.3 g/dl (14.0-17.9); LYMPHOCYTES # (AUTO) 0.5 X10'3 (1.1-4.8); MONOCYTES # (AUTO) 0.4 X10'3 (0-0.9); NEUTROPHILS # (AUTO) 4.4 X10'3 (1.8-7.7); WHITE BLOOD COUNT 5.3 X10'3 (4.5-11.0)
[2021-07-27 07:22] LABS: BASOPHILS % (AUTO) 0.6 % (0-1); LYMPHOCYTES % (AUTO) 8.7 % (21-51); MEAN CORPUSCULAR HEMOGLOBIN 27.8 PG (27.0-31.0); MEAN CORPUSCULAR HGB CONC 33.6 g/dL (33.0-36.5); MEAN CORPUSCULAR VOLUME 82.7 FL (78-98); MEAN PLATELET VOLUME 8.2 FL (7.4-10.4); MONOCYTES % (AUTO) 7.1 % (2-12); NEUTROPHILS % (AUTO) 83.6 % (42-75); RED BLOOD COUNT 2.62 X10'6 (4.70-6.10); RED CELL DISTRIBUTION WIDTH 18.7 % (11.5-14.5)
[2021-07-27 07:29] LABS: HEMATOCRIT 21.7 % (42.0-52.0)
[2021-07-27 07:30] LABS: PLATELET COUNT 23 X10'3 (140-440)
[2021-07-27] MEDS: thiamine 100mg/ml 2ml inj. IV SCH (07:54)
[2021-07-27] MEDS ORDERED: linagliptin 5mg tablet PO SCH (08:00)
[2021-07-27 10:04] LABS: ABG BASE EXCESS 1.9 mmol/L (-2.0-2.0); ABG HCO3 26.3 mmol/L (22.0-26.0); ABG OXYGEN SATURATION 97.6 % (94-97); ABG PCO2 (T) 38.8 mmHg (35.0-48.0); ABG PO2 (T) 116.3 mmHg (75.0-100.0); FCOHb 0.3 % (0.0-3.9); FMetHb 0.6 % (0.0-1.5); FO2Hb 96.7 % (94-97); PATIENT TEMPERATURE 36.2; PEEP 5 cm H2O; RESPIRATORY RATE 10 b/min; TIDAL VOLUME 450 mL; TOTAL HEMOGLOBIN 7.7 G/dl (14.0-18.0)
[2021-07-27] MEDS: folic acid 1mg/0.2ml inj IV SCH (10:20)
[2021-07-27 11:08] LABS: HBSAG SCREEN Negative (Negative)
--- NOTE | 2021-07-27 13:05 | NUR ---
TF Consult: Pt intubated, current diet order NPO. Gastric drain output 2200ml 3/7 per EMR. On HD w/ 1000ml removed 3/7 per RN. Initiate TF per MD, see TF recommendations below. Noted pt BG of 152-168 mg/dL, improved from admit level of 1218 mg/dL with A1c of 10.9 per EMR. No significant BM since admit. Will continue to follow closely and make recommendations as appropriate. Recommendations: 1) Continuous TF of Vital AF with 70 mL/hr goal rate to provide 1680 mL total volume/day, 2016 kcal, 126 g protein, and 1362 mL water 2) IF decreased kidney function persists, consider Nepro 1.8 with 50 mL/hr goal rate to provide 1200 mL total volume/day, 2160 kcal, 97 g protein, and 872 mL water 3) Additional water flush per MD given altered renal function w/ HD 4) Prealbumin q Monday/; Daily scaled weights 5) Bowel care per MD 6) Routine Thiamine and Folic acid per MD in view of EtOH hx 7) DM education once stable following extubation Addendum: 07/27/21 at 1306 by Rex Rizo Intern RD Amended: Links added. Addendum: 07/27/21 at [address] DENI has reviewed and approves of above note.
[2021-07-27] MEDS ORDERED: DEXTROSE 15 GM of carb/4 tabs (each vial/BOTTLE has 4 tablets) OGT PRN ×2 (15:19)
[2021-07-27] MEDS ORDERED: magnesium hydroxide 30ml (MOM) UD suspension OGT PRN (15:20)
[2021-07-27] MEDS ORDERED: potassium Cl 20 mEq SR tablet OGT PRN ×2 (15:20)
[2021-07-27] MEDS ORDERED: acetaminophen 325mg/10.15ml oral unit dose solution OGT PRN (15:20)
[2021-07-27] MEDS: doxazosin mesylate 2mg tablet OGT SCH (20:41)
[2021-07-27] MEDS: insulin glargine (Lantus) pen - multi-dose SQ SCH (20:41)
[2021-07-27] MEDS: insulin regular, human U-100 3ml vial - multi-dose SQ SCH (20:43)
[2021-07-28] VITALS (40 sets, daily range): BP systolic 82–143; BP diastolic 48–110
[2021-07-28] MEDS: pantoprazole 40MG/NS 100ML BAG 100 ML IV SCH ×3 (02:03→19:24)
[2021-07-28] MEDS: insulin regular, human U-100 3ml vial - multi-dose SQ SCH ×4 (02:11→21:44)
[2021-07-28 02:31] LABS: BASOPHILS # (AUTO) 0.1 X10'3 (0-0.2); BASOPHILS % (AUTO) 1.2 % (0-1); EOSINOPHILS % (AUTO) 0 % (0-6); HEMATOCRIT 24.5 % (42.0-52.0); LYMPHOCYTES # (AUTO) 0.4 X10'3 (1.1-4.8); LYMPHOCYTES % (AUTO) 6.3 % (21-51); MEAN CORPUSCULAR HEMOGLOBIN 27.4 PG (27.0-31.0); MEAN CORPUSCULAR HGB CONC 32.6 g/dL (33.0-36.5); MEAN CORPUSCULAR VOLUME 84.2 FL (78-98); MEAN PLATELET VOLUME 9.7 FL (7.4-10.4); MONOCYTES # (AUTO) 0.5 X10'3 (0-0.9); MONOCYTES % (AUTO) 7.4 % (2-12); NEUTROPHILS # (AUTO) 5.9 X10'3 (1.8-7.7); NEUTROPHILS % (AUTO) 85.1 % (42-75); RED BLOOD COUNT 2.91 X10'6 (4.70-6.10); RED CELL DISTRIBUTION WIDTH 18.5 % (11.5-14.5); WHITE BLOOD COUNT 6.9 X10'3 (4.5-11.0)
[2021-07-28 02:46] LABS: PLATELET COUNT 18 X10'3 (140-440)
[2021-07-28 02:56] LABS: ALBUMIN 2.1 G/DL (3.4-5.0); ANION GAP 9 (8-16); BLOOD UREA NITROGEN 89 MG/DL (7-18); BUN/CREATININE RATIO 23.1 (5.4-32.0); CHLORIDE 105 MMOL/L (99-107); CREATININE 3.85 MG/DL (0.60-1.10); GLUCOSE 217 MG/DL (70-104); POTASSIUM 3.9 MMOL/L (3.5-5.1); SODIUM 140 MMOL/L (135-145); TOTAL CARBON DIOXIDE 25.8 MMOL/L (24-32); eGFR 16 ML/MIN
[2021-07-28 03:13] LABS: MAGNESIUM 2.3 MG/DL (1.5-2.4); PHOSPHORUS 5.2 MG/DL (2.3-4.5)
[2021-07-28 03:46] LABS: ABG BASE EXCESS 2.4 mmol/L (-2.0-2.0); ABG HCO3 26.9 mmol/L (22.0-26.0); ABG PCO2 (T) 39.8 mmHg (35.0-48.0); FCOHb 0.1 % (0.0-3.9); FMetHb 0.3 % (0.0-1.5); FO2Hb 92.6 % (94-97); PATIENT TEMPERATURE 36.1; PEEP 5 cm H2O; RESPIRATORY RATE 10 b/min; TOTAL HEMOGLOBIN 8.9 G/dl (14.0-18.0)
[2021-07-28] MEDS: folic acid 1mg/0.2ml inj IV SCH (08:00)
[2021-07-28] MEDS: linagliptin 5mg tablet OGT SCH (08:11)
[2021-07-28] MEDS: NORepinephrine 8mg/ 250ml NS 250 ML IV SCH (08:11)
[2021-07-28] MEDS: hydrocortisone sod succ/PF 100mg/2ml inj. IV SCH ×2 (08:11→19:24)
[2021-07-28] MEDS: thiamine 100mg/ml 2ml inj. IV SCH (08:12)
[2021-07-28] MEDS ORDERED: albumin (human) 25% 100ml IV 100 ML IV PRN (08:15)
[2021-07-28] MEDS ORDERED: EPOETIN ALFA-EPBX 20,000 UNIT/ML 1 ML MDV IV ONE (08:15)
[2021-07-28] MEDS ORDERED: heparin 1,000 units/ml 10ml inj HE ONE ×2 (08:20)
[2021-07-28] MEDS: docusate sodium 100mg/10ml UD cup OGT SCH ×2 (11:58→19:24)
[2021-07-28] MEDS: QUEtiapine 25mg tablet PO SCH (18:41)
[2021-07-28] MEDS ORDERED: dexmedetomidin/NS 400mcg/100ml 100 ML IV SCH (19:00)
[2021-07-28] MEDS: dexmedetomidine/D5W 100mL 100 ML IV SCH ×2 (19:24→21:38)
[2021-07-28] MEDS ORDERED: NORepinephrine 8mg/ 250ml NS 250 ML IV PRN (20:05)
[2021-07-28] MEDS ORDERED: ringers solution, lacted 1,000 ML IV ONE (21:00)
[2021-07-28] MEDS: sennosides 8.6mg tablet OGT SCH (21:32)
[2021-07-28] MEDS: doxazosin mesylate 2mg tablet OGT SCH (21:32)
[2021-07-28] MEDS: insulin glargine (Lantus) pen - multi-dose SQ SCH (21:42)
[2021-07-29] VITALS (34 sets, daily range): BP systolic 95–174; BP diastolic 49–100
[2021-07-29] MEDS: NORepinephrine 8mg/ 250ml NS 250 ML IV SCH ×2 (00:43→19:33)
[2021-07-29] MEDS: insulin regular, human U-100 3ml vial - multi-dose SQ SCH ×3 (02:27→20:52)
[2021-07-29 03:07] LABS: ABG BASE EXCESS 4.1 mmol/L (-2.0-2.0); ABG HCO3 27.3 mmol/L (22.0-26.0); ABG OXYGEN SATURATION 95.3 % (94-97); ABG PCO2 (T) 33.7 mmHg (35.0-48.0); ABG PO2 (T) 73.3 mmHg (75.0-100.0); FCOHb 0.3 % (0.0-3.9); FMetHb 0.2 % (0.0-1.5); FO2Hb 94.8 % (94-97); PATIENT TEMPERATURE 36.1; PEEP 5 cm H2O; RESPIRATORY RATE 10 b/min; TIDAL VOLUME 450 mL
[2021-07-29 03:16] LABS: BASOPHILS % (AUTO) 0.8 % (0-1); EOSINOPHILS % (AUTO) 0.1 % (0-6); HEMATOCRIT 24.9 % (42.0-52.0); HEMOGLOBIN 8.2 g/dl (14.0-17.9); LYMPHOCYTES # (AUTO) 0.3 X10'3 (1.1-4.8); LYMPHOCYTES % (AUTO) 5.2 % (21-51); MEAN CORPUSCULAR HEMOGLOBIN 27.6 PG (27.0-31.0); MEAN CORPUSCULAR HGB CONC 32.8 g/dL (33.0-36.5); MEAN CORPUSCULAR VOLUME 84.1 FL (78-98); MEAN PLATELET VOLUME 10.1 FL (7.4-10.4); MONOCYTES # (AUTO) 0.4 X10'3 (0-0.9); MONOCYTES % (AUTO) 8.1 % (2-12); NEUTROPHILS # (AUTO) 4.3 X10'3 (1.8-7.7); NEUTROPHILS % (AUTO) 85.8 % (42-75); RED BLOOD COUNT 2.96 X10'6 (4.70-6.10); RED CELL DISTRIBUTION WIDTH 18.5 % (11.5-14.5); WHITE BLOOD COUNT 5.1 X10'3 (4.5-11.0)
[2021-07-29 03:28] LABS: PLATELET COUNT 16 X10'3 (140-440)
[2021-07-29 03:37] LABS: ALBUMIN 2.1 G/DL (3.4-5.0); ANION GAP 10 (8-16); BLOOD UREA NITROGEN 58 MG/DL (7-18); BUN/CREATININE RATIO 20.9 (5.4-32.0); CALCIUM 6.9 MG/DL (8.5-10.1); CHLORIDE 107 MMOL/L (99-107); CREATININE 2.77 MG/DL (0.60-1.10); GLUCOSE 211 MG/DL (70-104); MAGNESIUM 2.1 MG/DL (1.5-2.4); POTASSIUM 3.3 MMOL/L (3.5-5.1); SODIUM 142 MMOL/L (135-145); TOTAL CARBON DIOXIDE 25.4 MMOL/L (24-32); eGFR 23 ML/MIN
[2021-07-29 04:03] LABS: PHOSPHORUS 1.9 MG/DL (2.3-4.5)
[2021-07-29] MEDS ORDERED: magnesium 2GM in 50ml NS 50 ML IV PRN (07:25)
[2021-07-29] MEDS ORDERED: sodium phosphate inj. 30 MMOL in dextrose 5%-water 250 ML IV PRN (07:25)
[2021-07-29] MEDS ORDERED: Neutra Phos packet PO PRN (07:25)
[2021-07-29] MEDS ORDERED: magnesium 4gm in 100ml NS 100 ML IV PRN (07:25)
[2021-07-29] MEDS ORDERED: sodium phosphate inj. 15 MMOL in dextrose 5%-water 250 ML IV PRN (07:25)
[2021-07-29] MEDS: pantoprazole 40MG/NS 100ML BAG 100 ML IV SCH ×2 (08:54→19:53)
[2021-07-29] MEDS: hydrocortisone sod succ/PF 100mg/2ml inj. IV SCH ×2 (08:55→19:53)
[2021-07-29] MEDS: folic acid 1mg tablet OGT SCH (08:55)
[2021-07-29] MEDS: thiamine 100mg tablet OGT SCH (08:56)
[2021-07-29] MEDS: linagliptin 5mg tablet OGT SCH (08:56)
[2021-07-29] MEDS: K and/or MAG REPLACEMENT MC SCH (08:56)
[2021-07-29] MEDS: QUEtiapine 25mg tablet PO SCH ×2 (08:56→19:52)
[2021-07-29] MEDS: docusate sodium 100mg/10ml UD cup OGT SCH ×2 (08:56→19:53)
[2021-07-29] MEDS: MULTIVIT-MIN/FERROUS GLUCONATE 9 MG/15 ML LIQUID OGT SCH (08:56)
--- NOTE | 2021-07-29 11:50 | NUR ---
MD call Spoke with Dr. De Los Santos about pts incontinence. Acites and edematous scrotum prevent condom cath from functioning. Concerns about rt & lt groin access sites discussed with MD. He requested a diaper be placed vs catheter at this time. Also platelets ordered for PICC procedure.
--- NOTE | 2021-07-29 17:54 | NUR ---
CT Pt taken to CT scan. Pt tolerated procedure well without incident. Returned to 2011. Prior to CT, PICC line placed by Heater EVONNE. After CT noted oozing at PICC line site. MD to see pt and ordered 4x4 dressing with an paulo wrap as a control measure for oozing at PICC site.
--- NOTE | 2021-07-29 18:00 | NUR ---
1800 Received patient from ongoing RN. Labs and orders reviewed. Patient is intubated extremely agitated, follows commands intermittently. NSR noted on the cardiac care nurse. Patient on tube feed running at goal. Precedex running at 0.6mcg/hr, increase titration per protocol, due to extreme agitation. Safety precautions in place. No signs and symptoms of distress noted.
--- NOTE | 2021-07-29 18:21 | NUR ---
Problems reprioritized. Patient report given, questions answered & plan of care reviewed with Becca DOUGLASS.
[2021-07-29] MEDS: dexmedetomidine/D5W 100mL 100 ML IV SCH ×3 (19:50→22:33)
[2021-07-29] MEDS: sennosides 8.6mg tablet OGT SCH (19:53)
[2021-07-29] MEDS: doxazosin mesylate 2mg tablet OGT SCH (19:53)
[2021-07-29] MEDS: insulin glargine (Lantus) pen - multi-dose SQ SCH (20:49)
[2021-07-30] VITALS (36 sets, daily range): BP systolic 90–176; BP diastolic 36–86
[2021-07-30] MEDS: insulin regular, human U-100 3ml vial - multi-dose SQ SCH ×3 (02:19→20:16)
[2021-07-30] MEDS: dexmedetomidine/D5W 100mL 100 ML IV SCH ×4 (02:36→20:20)
[2021-07-30 02:46] LABS: BASOPHILS # (AUTO) 0.1 X10'3 (0-0.2); EOSINOPHILS # (AUTO) 0.1 X10'3 (0-0.9); HEMOGLOBIN 7.9 g/dl (14.0-17.9); LYMPHOCYTES # (AUTO) 0.5 X10'3 (1.1-4.8); MONOCYTES # (AUTO) 0.6 X10'3 (0-0.9); NEUTROPHILS # (AUTO) 3.7 X10'3 (1.8-7.7); RED BLOOD COUNT 2.87 X10'6 (4.70-6.10); RED CELL DISTRIBUTION WIDTH 18.6 % (11.5-14.5); WHITE BLOOD COUNT 4.9 X10'3 (4.5-11.0)
[2021-07-30 02:52] LABS: BASOPHILS % (AUTO) 1.4 % (0-1); EOSINOPHILS % (AUTO) 1.5 % (0-6); HEMATOCRIT 24.2 % (42.0-52.0); LYMPHOCYTES % (AUTO) 9.5 % (21-51); MEAN CORPUSCULAR HEMOGLOBIN 27.5 PG (27.0-31.0); MEAN CORPUSCULAR HGB CONC 32.6 g/dL (33.0-36.5); MEAN CORPUSCULAR VOLUME 84.3 FL (78-98); MEAN PLATELET VOLUME 10.5 FL (7.4-10.4); MONOCYTES % (AUTO) 11.9 % (2-12); NEUTROPHILS % (AUTO) 75.7 % (42-75)
[2021-07-30 02:55] LABS: PLATELET COUNT 28 X10'3 (140-440)
[2021-07-30 03:00] LABS: ANION GAP 10 (8-16); BLOOD UREA NITROGEN 73 MG/DL (7-18); BUN/CREATININE RATIO 24.3 (5.4-32.0); CALCIUM 6.9 MG/DL (8.5-10.1); CHLORIDE 107 MMOL/L (99-107); GLUCOSE 245 MG/DL (70-104); SODIUM 141 MMOL/L (135-145); eGFR 21 ML/MIN
[2021-07-30 03:24] LABS: MAGNESIUM 2.3 MG/DL (1.5-2.4); PHOSPHORUS 2.3 MG/DL (2.3-4.5)
[2021-07-30] MEDS: potassium Cl 20mEq/100mL bag 100 ML IV PRN ×2 (03:24→05:27)
[2021-07-30 03:52] LABS: ABG BASE EXCESS -0.3 mmol/L (-2.0-2.0); ABG HCO3 22.6 mmol/L (22.0-26.0); ABG PCO2 (T) 29.9 mmHg (35.0-48.0); ABG PO2 (T) 81.3 mmHg (75.0-100.0); FCOHb 0.3 % (0.0-3.9); FMetHb 0.3 % (0.0-1.5); FO2Hb 95.4 % (94-97); PATIENT TEMPERATURE 36.3; PEEP 5 cm H2O; RESPIRATORY RATE 10 b/min; TIDAL VOLUME 400 mL; TOTAL HEMOGLOBIN 9.8 G/dl (14.0-18.0)
[2021-07-30 04:24] LABS: PLATELET ESTIMATE DECREASED; TOTAL CELLS COUNTED 100
[2021-07-30 04:25] LABS: ANISOCYTOSIS 2+
[2021-07-30 04:26] LABS: POLYCHROMASIA 1+; SCHISTOCYTES FEW
[2021-07-30] MEDS ORDERED: EPOETIN ALFA-EPBX 20,000 UNIT/ML 1 ML MDV IV ONE (06:30)
[2021-07-30] MEDS ORDERED: albumin (human) 25% 100ml IV 100 ML IV PRN (06:30)
--- NOTE | 2021-07-30 06:33 | NUR ---
Patient in room CICU 2011. I have received report from Becca DOUGLASS and had the opportunity to ask questions and assume patient care.
[2021-07-30] MEDS ORDERED: heparin 1,000 units/ml 10ml inj HE ONE ×2 (06:35)
[2021-07-30] MEDS: K and/or MAG REPLACEMENT MC SCH (08:00)
[2021-07-30] MEDS: docusate sodium 100mg/10ml UD cup OGT SCH ×2 (08:00→20:01)
[2021-07-30] MEDS: hydrocortisone sod succ/PF 100mg/2ml inj. IV SCH ×2 (09:02→20:01)
[2021-07-30] MEDS: pantoprazole 40MG/NS 100ML BAG 100 ML IV SCH ×2 (09:02→20:01)
[2021-07-30] MEDS: linagliptin 5mg tablet OGT SCH (09:02)
[2021-07-30] MEDS: thiamine 100mg tablet OGT SCH (09:02)
[2021-07-30] MEDS: MULTIVIT-MIN/FERROUS GLUCONATE 9 MG/15 ML LIQUID OGT SCH (09:02)
[2021-07-30] MEDS: folic acid 1mg tablet OGT SCH (09:02)
[2021-07-30] MEDS: QUEtiapine 25mg tablet PO SCH ×2 (09:02→20:01)
[2021-07-30] MEDS: rifaximin 550mg tablet OGT SCH ×2 (13:25→20:01)
[2021-07-30] MEDS: NORepinephrine 8mg/ 250ml NS 250 ML IV SCH (13:53)
--- NOTE | 2021-07-30 14:38 | NUR ---
Reassessment: Pt remains intubated and tolerating TF at goal rate with GRV WNL. Pt s/p HD 07/28 with 1 L fluid removed per EMR. LBM 3/5 per EMR however per RN at critical care rounds pt had a large BM today. Pt started on routine and PRN bowel care 07/28 which was held this morning d/t diarrhea. Pt started on routine Rifaximin today d/t elevated serum ammonia per MD at critical care rounds. Noted pt with a low Pancho of 11, skin intact per EMR. No changes to nutrition intervention at this time. Will continue to follow. Recommendations: 1) Continuous TF via Corpak using Vital AF with 70 mL/hr goal rate to provide 1680 mL total volume/day, 2016 kcal, 126 g protein, and 1362 mL water 2) IF decreased kidney function persists, consider Nepro 1.8 with 50 mL/hr goal rate to provide 1200 mL total volume/day, 2160 kcal, 97 g protein, and 872 mL water 3) Additional water flush per MD given altered renal function w/ HD 4) Prealbumin q Monday/ 5) Daily scaled weights 6) Routine bowel care 7) Continue routine Thiamine and Folic acid and MVM with iron per MD in view of EtOH hx 8) DM education once stable following extubation; A1c 10.9% and admit with DKA with BG 1218 mg/dL Addendum: 07/30/21 at [address] Amended: Links added.
--- NOTE | 2021-07-30 18:28 | NUR ---
Patient awakened through day becoming agitated requiring Precedex at 1.4 mcg/kg/hr. After dialysis, patient's sats decreased to mid 80's. Suctioned for thick yellow secretions. Sputum culture sent. CXR done showing increasing pulmonary effusions and atelectasis/pneumonia. Required increasing FiO2 to 60% to maintain sats in 90's./
--- NOTE | 2021-07-30 18:30 | NUR ---
Remains very edematous. Increase in UO. Unable to maintain condom cath d/t patient's penis inverted. F/C inserted to keep groin central line site dry.
[2021-07-30] MEDS ORDERED: propofol 1000mg/100ml bottle 100 ML IV ONE (18:33)
[2021-07-30] MEDS: propofol 1000mg/100ml bottle 100 ML IV SCH ×2 (18:47→22:59)
[2021-07-30] MEDS: doxazosin mesylate 2mg tablet OGT SCH (20:01)
[2021-07-30] MEDS: sennosides 8.6mg tablet OGT SCH (20:02)
[2021-07-30] MEDS: insulin glargine (Lantus) pen - multi-dose SQ SCH (20:14)
[2021-07-31] VITALS (36 sets, daily range): BP systolic 93–292; BP diastolic 51–203
[2021-07-31] MEDS: dexmedetomidine/D5W 100mL 100 ML IV SCH ×7 (00:15→23:46)
[2021-07-31 02:33] LABS: BASOPHILS % (AUTO) 0.8 % (0-1); EOSINOPHILS % (AUTO) 0.5 % (0-6); HEMATOCRIT 23.9 % (42.0-52.0); HEMOGLOBIN 7.9 g/dl (14.0-17.9); LYMPHOCYTES # (AUTO) 0.3 X10'3 (1.1-4.8); LYMPHOCYTES % (AUTO) 5.3 % (21-51); MEAN CORPUSCULAR HEMOGLOBIN 27.6 PG (27.0-31.0); MEAN CORPUSCULAR VOLUME 83.6 FL (78-98); MEAN PLATELET VOLUME 10.8 FL (7.4-10.4); MONOCYTES # (AUTO) 0.5 X10'3 (0-0.9); MONOCYTES % (AUTO) 8.3 % (2-12); NEUTROPHILS # (AUTO) 4.8 X10'3 (1.8-7.7); NEUTROPHILS % (AUTO) 85.1 % (42-75); RED BLOOD COUNT 2.86 X10'6 (4.70-6.10); RED CELL DISTRIBUTION WIDTH 18.9 % (11.5-14.5); WHITE BLOOD COUNT 5.7 X10'3 (4.5-11.0)
[2021-07-31] MEDS: insulin regular, human U-100 3ml vial - multi-dose SQ SCH ×4 (02:45→20:58)
[2021-07-31 02:54] LABS: PLATELET COUNT 33 X10'3 (140-440)
[2021-07-31 02:58] LABS: ALBUMIN 2.3 G/DL (3.4-5.0); BLOOD UREA NITROGEN 54 MG/DL (7-18); BUN/CREATININE RATIO 22.4 (5.4-32.0); CALCIUM 6.9 MG/DL (8.5-10.1); CHLORIDE 104 MMOL/L (99-107); CREATININE 2.41 MG/DL (0.60-1.10); GLUCOSE 295 MG/DL (70-104); TOTAL CARBON DIOXIDE 24.5 MMOL/L (24-32); eGFR 27 ML/MIN
[2021-07-31 03:02] LABS: ABG BASE EXCESS 2.2 mmol/L (-2.0-2.0); ABG HCO3 25.3 mmol/L (22.0-26.0); ABG OXYGEN SATURATION 95.3 % (94-97); ABG PCO2 (T) 32.7 mmHg (35.0-48.0); ABG PO2 (T) 77.9 mmHg (75.0-100.0); FCOHb 0.3 % (0.0-3.9); FMetHb 0.3 % (0.0-1.5); FO2Hb 94.7 % (94-97); PATIENT TEMPERATURE 36.8; PEEP 5 cm H2O; RESPIRATORY RATE 10 b/min; TIDAL VOLUME 550 mL; TOTAL HEMOGLOBIN 8.7 G/dl (14.0-18.0)
--- NOTE | 2021-07-31 03:14 | NUR ---
61 year old male, admitted 07/24/2021, day 7 of hospitalization, full code, no isolation, allergies to Honey bee venom. pt has bilateral soft wrist restraints, orders and documentation in accordance with facilities policies and procedures. Consults to GI got UGIB and renal LA of 30 Glucose of >1200. This patient presents with multiple comorbidities including Hep C, liver cirrhosis, uncontrolled DM who presents with metformin induced lactic acidosis, DKA and BG >1200 and an upper GI bleed, hypotensive and severely anemic, Hbg 4.8. Pt was transfused 2 units PRBC in ICU. He was stabilized in the ER and intubated and brought up to the CICU where lines were placed and dialysis started. Dr. Rose of GI was called for an urgent EGD and Dr. Gr consulted to aid in Dialysis. Currently, patient was afebrile of 36.5. Sedated on Propofol at 39.9 mcgs and Precedex at 1.4 mcgs. Pupils sluggish, equal reactive to light. GCS 7, RASS-3. Propofol was restarted due to gross agitation, and restlessness. HR 61 SR no ectopy, BP 132/73. ++2 generalized edema and gross scrotal edema. Weak pulses. Right groin A-Line monitoring BP. All IVF infusing via Right YOVANY TL PICC line. All ports f/p, good blood return, dressing CDI. Pt remains intubated with 8.0 ETT, 24 cm, Vent AC/PRVC, rate 14, TV 637 +/-, FIO2 60% PEEP 5. Suction PRN for moderate secretions, smith secretions. Pt tolerating vent settings well. Breath sounds, coarse, diminished, equal, symmetrical, non labored. Hypoactive bowel sounds, soft, small, rounded, mild distention. Tube feeding Kera AF infusing at 70 ml's hr. via OGT hr. Glucose checks Q 6 hours with Regular insulin coverage. Protonix for GI prophylaxis. Tiwari draining deep homar urine 30-50 ml's hr. Presence of Left groin Daniel Cath for dialysis. Skin intact. Both groin dressings changed. Pt remains safe, continue to monitor.
[2021-07-31 03:20] LABS: ANION GAP 9 (8-16); POTASSIUM 3.2 MMOL/L (3.5-5.1); SODIUM 137 MMOL/L (135-145); TRIGLYCERIDES 175 MG/DL (20-135)
[2021-07-31] MEDS: propofol 1000mg/100ml bottle 100 ML IV SCH ×3 (04:36→16:50)
--- NOTE | 2021-07-31 06:30 | NUR ---
Patient in room CICU 2011. I have received report from Candido DOUGLASS and had the opportunity to ask questions and assume patient care.
[2021-07-31] MEDS: K and/or MAG REPLACEMENT MC SCH (06:31)
[2021-07-31] MEDS: docusate sodium 100mg/10ml UD cup OGT SCH ×2 (06:32→20:20)
[2021-07-31] MEDS: NORepinephrine 8mg/ 250ml NS 250 ML IV SCH (06:55)
[2021-07-31] MEDS: folic acid 1mg tablet OGT SCH (08:36)
[2021-07-31] MEDS: MULTIVIT-MIN/FERROUS GLUCONATE 9 MG/15 ML LIQUID OGT SCH (08:36)
[2021-07-31] MEDS: rifaximin 550mg tablet OGT SCH ×2 (08:36→20:20)
[2021-07-31] MEDS: pantoprazole 40MG/NS 100ML BAG 100 ML IV SCH (08:36)
[2021-07-31] MEDS: QUEtiapine 25mg tablet PO SCH ×2 (08:36→20:20)
[2021-07-31] MEDS: thiamine 100mg tablet OGT SCH (08:36)
[2021-07-31] MEDS: hydrocortisone sod succ/PF 100mg/2ml inj. IV SCH ×2 (08:36→20:20)
[2021-07-31] MEDS: linagliptin 5mg tablet OGT SCH (08:36)
[2021-07-31] MEDS: furosemide 40mg/4ml inj IV SCH ×3 (10:12→20:20)
[2021-07-31] MEDS ORDERED: albumin (human) 25% 100 ML IV solution IV ONE ×2 (14:10→20:00)
[2021-07-31] MEDS: MICAFUNGIN IV SCH (14:49)
[2021-07-31] MEDS: NORMAL SALINE IV SCH (14:49)
[2021-07-31] MEDS: VANCOMYCIN 1GM/200ML IVPB 200 ML IV SCH (15:26)
[2021-07-31] MEDS: piperacillin/tazo 3.375gm/50ml 50 ML IV SCH (16:07)
--- NOTE | 2021-07-31 17:33 | NUR ---
Remains sedated on Propofol and Precedex. In sinus rhythm with stable BP. No pressors required. Suctioned yellow secretions. Started on Zosyn, Vancomycin & Micofungin d/t sputum culture results. Receiving 25% Albumin & Lasix to mobilize UO with good response. Skin intact without breakdown noted.
--- NOTE | 2021-07-31 18:21 | NUR ---
Problems reprioritized. Patient report given, questions answered & plan of care reviewed with Larissa DOUGLASS.
[2021-07-31] MEDS: sennosides 8.6mg tablet OGT SCH (20:20)
[2021-07-31] MEDS: doxazosin mesylate 2mg tablet OGT SCH (20:20)
[2021-07-31] MEDS: insulin glargine (Lantus) pen - multi-dose SQ SCH (20:57)
[2021-07-31] MEDS: albumin (human) 25% 100 ML IV solution IV SCH (21:15)
[2021-08-01] VITALS (33 sets, daily range): BP systolic 95–176; BP diastolic 43–66
[2021-08-01] MEDS: NORepinephrine 8mg/ 250ml NS 250 ML IV SCH ×2 (00:36→17:21)
[2021-08-01] MEDS: piperacillin/tazo 3.375gm/50ml 50 ML IV SCH ×3 (01:00→16:02)
[2021-08-01 03:01] LABS: ABG BASE EXCESS -1.1 mmol/L (-2.0-2.0); ABG HCO3 21.3 mmol/L (22.0-26.0); ABG OXYGEN SATURATION 92.5 % (94-97); ABG PCO2 (T) 26.1 mmHg (35.0-48.0); ABG PO2 (T) 64.9 mmHg (75.0-100.0); FCOHb 0.3 % (0.0-3.9); FMetHb 0.4 % (0.0-1.5); FO2Hb 91.9 % (94-97); PATIENT TEMPERATURE 36.6; PEEP 5 cm H2O; RESPIRATORY RATE 10 b/min; TIDAL VOLUME 500 mL; TOTAL HEMOGLOBIN 7.8 G/dl (14.0-18.0)
[2021-08-01] MEDS: albumin (human) 25% 100 ML IV solution IV SCH ×2 (03:29→08:02)
[2021-08-01] MEDS: furosemide 40mg/4ml inj IV SCH ×4 (03:30→20:00)
[2021-08-01] MEDS: insulin regular, human U-100 3ml vial - multi-dose SQ SCH ×4 (03:43→21:14)
[2021-08-01 04:02] LABS: BASOPHILS % (AUTO) 0.8 % (0-1); EOSINOPHILS # (AUTO) 0.1 X10'3 (0-0.9); HEMOGLOBIN 7.2 g/dl (14.0-17.9); LYMPHOCYTES # (AUTO) 0.5 X10'3 (1.1-4.8); LYMPHOCYTES % (AUTO) 9.6 % (21-51); MEAN CORPUSCULAR HEMOGLOBIN 27.4 PG (27.0-31.0); MEAN CORPUSCULAR HGB CONC 32.9 g/dL (33.0-36.5); MEAN CORPUSCULAR VOLUME 83.2 FL (78-98); MEAN PLATELET VOLUME 10.9 FL (7.4-10.4); MONOCYTES # (AUTO) 0.7 X10'3 (0-0.9); MONOCYTES % (AUTO) 12.9 % (2-12); NEUTROPHILS # (AUTO) 3.8 X10'3 (1.8-7.7); NEUTROPHILS % (AUTO) 74.7 % (42-75); PLATELET COUNT 58 X10'3 (140-440); RED BLOOD COUNT 2.64 X10'6 (4.70-6.10); RED CELL DISTRIBUTION WIDTH 19.2 % (11.5-14.5); WHITE BLOOD COUNT 5.1 X10'3 (4.5-11.0)
[2021-08-01] MEDS: dexmedetomidine/D5W 100mL 100 ML IV SCH ×4 (04:10→14:51)
[2021-08-01 05:32] LABS: ANISOCYTOSIS 2+; NUCLEATED RED BLOOD CELLS 1 /100WBC (0-0); PLATELET ESTIMATE DECREASED; TOTAL CELLS COUNTED 100
[2021-08-01 05:33] LABS: ELLIPTOCYTES FEW; POLYCHROMASIA FEW; SCHISTOCYTES FEW
[2021-08-01] MEDS: propofol 1000mg/100ml bottle 100 ML IV SCH ×2 (06:05→14:51)
[2021-08-01 07:20] LABS: ALBUMIN 2.3 G/DL (3.4-5.0); ANION GAP 9 (8-16); BLOOD UREA NITROGEN 60 MG/DL (7-18); BUN/CREATININE RATIO 25.4 (5.4-32.0); CALCIUM 6.1 MG/DL (8.5-10.1); CHLORIDE 107 MMOL/L (99-107); CREATININE 2.36 MG/DL (0.60-1.10); GLUCOSE 228 MG/DL (70-104); MAGNESIUM 1.6 MG/DL (1.5-2.4); SODIUM 138 MMOL/L (135-145); TOTAL CARBON DIOXIDE 21.7 MMOL/L (24-32); eGFR 28 ML/MIN
[2021-08-01 07:22] LABS: POTASSIUM 2.1 MMOL/L (3.5-5.1)
--- NOTE | 2021-08-01 07:37 | NUR ---
K 2.1. DNP Jaylyn notified. Order rec'd for 40meq KCL IV. Also notified of Lasix order, urine output and CVP 5.
[2021-08-01] MEDS: potassium Cl 20mEq/100mL bag 100 ML IV SCH ×4 (07:53→13:17)
[2021-08-01] MEDS: pantoprazole 40MG/NS 100ML BAG 100 ML IV SCH (07:55)
[2021-08-01] MEDS: rifaximin 550mg tablet OGT SCH ×2 (07:56→20:41)
[2021-08-01] MEDS: MULTIVIT-MIN/FERROUS GLUCONATE 9 MG/15 ML LIQUID OGT SCH (07:56)
[2021-08-01] MEDS: thiamine 100mg tablet OGT SCH (07:56)
[2021-08-01] MEDS: linagliptin 5mg tablet OGT SCH (07:56)
[2021-08-01] MEDS: docusate sodium 100mg/10ml UD cup OGT SCH ×2 (07:56→20:41)
[2021-08-01] MEDS: hydrocortisone sod succ/PF 100mg/2ml inj. IV SCH ×2 (07:56→20:41)
[2021-08-01] MEDS: QUEtiapine 25mg tablet PO SCH ×2 (07:56→20:41)
[2021-08-01] MEDS: folic acid 1mg tablet OGT SCH (07:56)
[2021-08-01] MEDS: NORMAL SALINE IV SCH (08:35)
[2021-08-01] MEDS: MICAFUNGIN IV SCH (08:35)
[2021-08-01] MEDS ORDERED: Potassium Cl inj 40 MEQ in normal saline 250ml IV soln 250 ML IV ONE (11:50)
--- NOTE | 2021-08-01 11:50 | NUR ---
K+ 2.6. Called Brannon De La O DNP. Order rec'd for 40meq KCL and to re-check K+ and Mag after infusion.
[2021-08-01] MEDS: VANCOMYCIN 1GM/200ML IVPB 200 ML IV SCH (14:41)
[2021-08-01 16:00] LABS: MAGNESIUM 1.7 MG/DL (1.5-2.4)
[2021-08-01 16:01] LABS: POTASSIUM 3.3 MMOL/L (3.5-5.1)
[2021-08-01] MEDS: mineral oil/petrolatum ophthal oint EACHEYE SCH (20:40)
[2021-08-01] MEDS: doxazosin mesylate 2mg tablet OGT SCH (20:41)
[2021-08-01] MEDS: sennosides 8.6mg tablet OGT SCH (20:41)
[2021-08-01] MEDS: insulin glargine (Lantus) pen - multi-dose SQ SCH (21:16)
[2021-08-02] VITALS (29 sets, daily range): BP systolic 78–131; BP diastolic 37–65
[2021-08-02] MEDS: piperacillin/tazo 3.375gm/50ml 50 ML IV SCH ×3 (01:45→17:18)
[2021-08-02] MEDS: dexmedetomidine/D5W 100mL 100 ML IV SCH ×3 (02:10→13:48)
[2021-08-02 02:44] LABS: ABG BASE EXCESS -0.7 mmol/L (-2.0-2.0); ABG HCO3 21.5 mmol/L (22.0-26.0); ABG OXYGEN SATURATION 94.1 % (94-97); ABG PCO2 (T) 25.7 mmHg (35.0-48.0); ABG PO2 (T) 68.3 mmHg (75.0-100.0); FCOHb 0.1 % (0.0-3.9); FMetHb 0.2 % (0.0-1.5); FO2Hb 93.8 % (94-97); PATIENT TEMPERATURE 36.2; PEEP 5 cm H2O; RESPIRATORY RATE 10 b/min; TIDAL VOLUME 500 mL; TOTAL HEMOGLOBIN 8.6 G/dl (14.0-18.0)
[2021-08-02 02:47] LABS: HEMATOCRIT 24.4 % (42.0-52.0); LYMPHOCYTES # (AUTO) 0.2 X10'3 (1.1-4.8); MEAN CORPUSCULAR HEMOGLOBIN 27.2 PG (27.0-31.0); MEAN CORPUSCULAR HGB CONC 32.7 g/dL (33.0-36.5); WHITE BLOOD COUNT 5.4 X10'3 (4.5-11.0)
[2021-08-02 02:48] LABS: BASOPHILS % (AUTO) 0.7 % (0-1); EOSINOPHILS % (AUTO) 0.6 % (0-6); LYMPHOCYTES % (AUTO) 3.9 % (21-51); MEAN CORPUSCULAR VOLUME 83.1 FL (78-98); MEAN PLATELET VOLUME 10.5 FL (7.4-10.4); MONOCYTES # (AUTO) 0.4 X10'3 (0-0.9); MONOCYTES % (AUTO) 7.5 % (2-12); NEUTROPHILS # (AUTO) 4.7 X10'3 (1.8-7.7); NEUTROPHILS % (AUTO) 87.3 % (42-75); PLATELET COUNT 58 X10'3 (140-440); RED BLOOD COUNT 2.93 X10'6 (4.70-6.10); RED CELL DISTRIBUTION WIDTH 18.9 % (11.5-14.5)
[2021-08-02] MEDS: mineral oil/petrolatum ophthal oint EACHEYE SCH ×4 (02:55→20:00)
[2021-08-02] MEDS: furosemide 40mg/4ml inj IV SCH ×4 (02:55→21:10)
[2021-08-02 03:01] LABS: ALBUMIN 2.4 G/DL (3.4-5.0); ANION GAP 13 (8-16); BLOOD UREA NITROGEN 73 MG/DL (7-18); BUN/CREATININE RATIO 26.8 (5.4-32.0); CALCIUM 7.1 MG/DL (8.5-10.1); CHLORIDE 102 MMOL/L (99-107); CREATININE 2.72 MG/DL (0.60-1.10); GLUCOSE 373 MG/DL (70-104); MAGNESIUM 1.7 MG/DL (1.5-2.4); PREALBUMIN 13.6 MG/DL (19-36); SODIUM 139 MMOL/L (135-145); TOTAL CARBON DIOXIDE 24.2 MMOL/L (24-32); eGFR 24 ML/MIN
[2021-08-02] MEDS: insulin regular, human U-100 3ml vial - multi-dose SQ SCH ×4 (03:04→21:36)
[2021-08-02 03:11] LABS: PHOSPHORUS 3.5 MG/DL (2.3-4.5)
[2021-08-02 03:12] LABS: POTASSIUM 2.7 MMOL/L (3.5-5.1)
[2021-08-02] MEDS ORDERED: potassium Cl 20 mEq/100mL bag IV ONE (04:40)
[2021-08-02] MEDS ORDERED: POTASSIUM CHLORIDE 20 MEQ/15 ML oral solution NG STA (04:41)
[2021-08-02] MEDS ORDERED: insulin glargine (Lantus) pen - multi-dose SQ ONE (04:50)
[2021-08-02] MEDS: potassium Cl 20 mEq/100mL bag IV SCH ×2 (05:01→05:40)
[2021-08-02 05:25] LABS: ANISOCYTOSIS 2+; PLATELET ESTIMATE DECREASED; TOTAL CELLS COUNTED 100
[2021-08-02 05:26] LABS: BURR CELLS FEW; ELLIPTOCYTES FEW; POLYCHROMASIA FEW; SCHISTOCYTES FEW; TARGET CELLS FEW
[2021-08-02] MEDS: linagliptin 5mg tablet OGT SCH (07:39)
[2021-08-02] MEDS: QUEtiapine 25mg tablet PO SCH ×2 (07:39→21:12)
[2021-08-02] MEDS: folic acid 1mg tablet OGT SCH (07:40)
[2021-08-02] MEDS: thiamine 100mg tablet OGT SCH (07:40)
[2021-08-02] MEDS: MULTIVIT-MIN/FERROUS GLUCONATE 9 MG/15 ML LIQUID OGT SCH (07:40)
[2021-08-02] MEDS: docusate sodium 100mg/10ml UD cup OGT SCH ×2 (07:40→20:00)
[2021-08-02] MEDS: rifaximin 550mg tablet OGT SCH ×2 (07:40→21:11)
[2021-08-02] MEDS: hydrocortisone sod succ/PF 100mg/2ml inj. IV SCH ×2 (07:43→21:11)
[2021-08-02] MEDS: pantoprazole 40MG/NS 100ML BAG 100 ML IV SCH (07:43)
[2021-08-02] MEDS: midodrine 5mg tablet PO SCH ×3 (11:23→17:18)
[2021-08-02] MEDS: potassium Cl 20mEq/100mL bag 100 ML IV PRN ×2 (13:48→15:24)
--- NOTE | 2021-08-02 14:30 | NUR ---
PRINTING MACHINE OPERATOR Luis Antonio at bedside placing right IJ long, pt [place] well, left groin long dc'd per verbal order at 1500 hemostasis achieved, tip intact. pt extubated at 1520 to 4ltr nc. pt is agitated and threatening rn att. vss.
[2021-08-02] MEDS: VANCOMYCIN 1GM/200ML IVPB 200 ML IV SCH (15:32)
[2021-08-02] MEDS ORDERED: heparin 1,000 units/ml 10ml inj HE ONE ×2 (17:55)
--- NOTE | 2021-08-02 18:29 | NUR ---
Patient in room CICU 2011. I have received report from EVONNE Benítez and had the opportunity to ask questions and assume patient care. Patient is awake and alert watching TV. No signs of distress at this time. Call light in reach.
--- NOTE | 2021-08-02 19:00 | NUR ---
JOSE Salmon rounded before end of his shift. RUCHING MACHINE OPERATOR will place order for Lactulose for increase in Ammonia.
--- NOTE | 2021-08-02 19:35 | NUR ---
Patient pulled out CorePac is pulling at lines and tubes. Dr. Jennings called to notify. Order to replace with NG tube for tonight. Restraint order renewed.
[2021-08-02] MEDS: sennosides 8.6mg tablet OGT SCH (21:00)
[2021-08-02] MEDS: doxazosin mesylate 2mg tablet OGT SCH (21:24)
[2021-08-02] MEDS: insulin glargine (Lantus) pen - multi-dose SQ SCH (21:37)
--- NOTE | 2021-08-02 23:11 | NUR ---
Patient confused and agitated, unable to follow commands and pulls and lines and tubes. Restraints in place per MD order. Frequent assessment by RN. When patient is relaxed patients SpO2 96% with respiratory rate in the 20's. Patient is on high flow nasal cannula at 10 lpm.
[2021-08-03] VITALS (23 sets, daily range): BP systolic 85–137; BP diastolic 53–71
[2021-08-03] MEDS: piperacillin/tazo 3.375gm/50ml 50 ML IV SCH ×3 (00:26→16:07)
[2021-08-03] MEDS: lactulose 20gm/30ml cup PO SCH ×3 (00:26→07:26)
[2021-08-03] MEDS: dexmedetomidine/D5W 100mL 100 ML IV SCH ×3 (00:48→23:07)
[2021-08-03] MEDS: mineral oil/petrolatum ophthal oint EACHEYE SCH ×4 (02:00→19:58)
[2021-08-03 02:27] LABS: BASOPHILS % (AUTO) 0.2 % (0-1); EOSINOPHILS % (AUTO) 0.5 % (0-6); HEMATOCRIT 23.9 % (42.0-52.0); HEMOGLOBIN 7.6 g/dl (14.0-17.9); LYMPHOCYTES # (AUTO) 0.3 X10'3 (1.1-4.8); LYMPHOCYTES % (AUTO) 4.4 % (21-51); MEAN CORPUSCULAR HEMOGLOBIN 26.4 PG (27.0-31.0); MEAN CORPUSCULAR VOLUME 82.4 FL (78-98); MEAN PLATELET VOLUME 9.9 FL (7.4-10.4); MONOCYTES # (AUTO) 0.5 X10'3 (0-0.9); MONOCYTES % (AUTO) 6.9 % (2-12); PLATELET COUNT 62 X10'3 (140-440); RED CELL DISTRIBUTION WIDTH 18.9 % (11.5-14.5); WHITE BLOOD COUNT 7.9 X10'3 (4.5-11.0)
[2021-08-03] MEDS: furosemide 40mg/4ml inj IV SCH ×3 (02:39→19:45)
[2021-08-03] MEDS: insulin regular, human U-100 3ml vial - multi-dose SQ SCH ×4 (02:39→20:41)
[2021-08-03 02:42] LABS: ALBUMIN 2.4 G/DL (3.4-5.0); ANION GAP 14 (8-16); BLOOD UREA NITROGEN 79 MG/DL (7-18); BUN/CREATININE RATIO 26.9 (5.4-32.0); CALCIUM 7.5 MG/DL (8.5-10.1); CHLORIDE 106 MMOL/L (99-107); CREATININE 2.94 MG/DL (0.60-1.10); GLUCOSE 163 MG/DL (70-104); MAGNESIUM 1.7 MG/DL (1.5-2.4); SODIUM 145 MMOL/L (135-145); TOTAL CARBON DIOXIDE 24.8 MMOL/L (24-32); eGFR 22 ML/MIN
[2021-08-03 02:58] LABS: POTASSIUM 2.4 MMOL/L (3.5-5.1)
[2021-08-03] MEDS: potassium Cl 20mEq/100mL bag 100 ML IV PRN ×3 (03:00→07:26)
--- NOTE | 2021-08-03 03:05 | NUR ---
K 2.[address] Jennings. Patient has protocol for Central line replacement. No additional orders at this time.
[2021-08-03 03:17] LABS: PHOSPHORUS 4.1 MG/DL (2.3-4.5)
--- NOTE | 2021-08-03 04:40 | NUR ---
Rounds with Dr. Rader: Patient agitation and confusion post extubation addressed. Critical lab K 2.4, Currently being replaced via Central line. to place orders for Librium via NG tube, also for additional potassium replacement while receiving Lasix.
[2021-08-03] MEDS ORDERED: chlordiazePOXIDE 5mg capsule NG PRN (04:45)
[2021-08-03] MEDS ORDERED: chlordiazePOXIDE 25mg capsule NG ONE (04:45)
--- NOTE | 2021-08-03 06:11 | NUR ---
Problems reprioritized. Patient report given, questions answered & plan of care reviewed with EVONNE Benítez.
[2021-08-03] MEDS: MULTIVIT-MIN/FERROUS GLUCONATE 9 MG/15 ML LIQUID OGT SCH (07:21)
[2021-08-03] MEDS: rifaximin 550mg tablet OGT SCH ×2 (07:21→19:44)
[2021-08-03] MEDS: folic acid 1mg tablet OGT SCH (07:22)
[2021-08-03] MEDS: midodrine 5mg tablet PO SCH ×3 (07:22→16:02)
[2021-08-03] MEDS: QUEtiapine 25mg tablet PO SCH ×2 (07:22→19:44)
[2021-08-03] MEDS: hydrocortisone sod succ/PF 100mg/2ml inj. IV SCH ×2 (07:22→19:45)
[2021-08-03] MEDS: linagliptin 5mg tablet OGT SCH (07:22)
[2021-08-03] MEDS: thiamine 100mg tablet OGT SCH (07:23)
[2021-08-03] MEDS: docusate sodium 100mg/10ml UD cup OGT SCH ×2 (07:23→19:45)
[2021-08-03] MEDS: pantoprazole 40MG/NS 100ML BAG 100 ML IV SCH (07:23)
[2021-08-03 07:38] LABS: ANISOCYTOSIS 2+; NUCLEATED RED BLOOD CELLS 2 /100WBC (0-0); PLATELET ESTIMATE DECREASED; TOTAL CELLS COUNTED 100
[2021-08-03 07:39] LABS: ELLIPTOCYTES FEW
[2021-08-03 07:40] LABS: BURR CELLS FEW
[2021-08-03] MEDS ORDERED: potassium bicarbonate/cit acid 25mEq tablet.effervescent PO ONE ×2 (08:25→08:34)
[2021-08-03] MEDS ORDERED: haloperidol decanoate***LONG-ACTING*** 100mg/ml **IM only** inj. IM PRN (11:10)
[2021-08-03] MEDS ORDERED: haloperidol lactate 5mg/ml inj IM PRN (11:20)
[2021-08-03] MEDS ORDERED: sennosides 8.6mg tablet OGT PRN (11:27)
[2021-08-03] MEDS ORDERED: furosemide 10 MG/1 ML 10ml inj IV SCH (14:00)
[2021-08-03] MEDS ORDERED: magnesium 4gm in 100ml NS 100 ML IV ONE (14:25)
[2021-08-03] MEDS ORDERED: VANCOMYCIN LEVEL IV ONE (14:30)
[2021-08-03] MEDS: VANCOMYCIN 1GM/200ML IVPB 200 ML IV SCH (14:36)
--- NOTE | 2021-08-03 15:13 | NUR ---
Reassessment: Pt extubated 08/02 and tolerating TF at goal rate w/ GRV WNL. BSS completed today 08/03, WOOD FENCE ERECTOR recommended pureed diet w/ NTL, though pt still has NG tube per EMR. Recommend continuing w/ TF until pt has adequate PO intake. Serum K has been low and requiring replacement, recommend TF formula change to Glucerna at this time. TF adjustments below. Pt s/p HD 07/30 with 2012 ml fluid removed per EMR. LBM 08/03, noted pt w/ diarrhea and 300 ml stool output via rectal tube per EMR. Will continue to follow for TF tolerance and adjustment needs. Recommendations: 1) Continue puree diet w/ NTL per ST; advance to carb control diet as medically indicated 2) Continuous TF via Corpak using Glucerna 1.2 with 70 mL/hr goal rate to provide 1680 mL total volume/day, 2016 kcal, 101 g protein, and 1352 mL water 3) IF decreased kidney function persists, consider Nepro 1.8 with 50 mL/hr goal rate to provide 1200 mL total volume/day, 2160 kcal, 97 g protein, and 872 mL water 4) Additional water flush per MD given altered renal function w/ HD 5) Prealbumin q Monday/ 6) Daily scaled weights 7) Bowel care per rx 8) Continue routine Thiamine and Folic acid and MVM with iron per MD in view of EtOH hx 8) DM education once stable following extubation; A1c 10.9% and admit with DKA with BG 1218 mg/dL Addendum: 08/03/21 at 1513 by Dixie Rizo Intern RD Amended: Links added. Addendum: 08/03/21 at [address] I have reviewed and agree with note by User Interface DesignerNeyda Martell RD Updated TF recommendations have been d/w bedside RN who will update EMR.
[2021-08-03 15:16] LABS: POTASSIUM 3.8 MMOL/L (3.5-5.1)
[2021-08-03] MEDS: POTASSIUM CHLORIDE 20 MEQ/15 ML oral solution PO SCH (19:44)
[2021-08-03] MEDS: doxazosin mesylate 2mg tablet OGT SCH (20:06)
[2021-08-03] MEDS: insulin glargine (Lantus) pen - multi-dose SQ SCH (20:39)
[2021-08-04] VITALS (23 sets, daily range): BP systolic 93–147; BP diastolic 54–75
[2021-08-04] MEDS: mineral oil/petrolatum ophthal oint EACHEYE SCH ×2 (01:23→08:00)
[2021-08-04] MEDS: insulin regular, human U-100 3ml vial - multi-dose SQ SCH ×2 (02:10→08:13)
[2021-08-04 02:58] LABS: BASOPHILS % (AUTO) 0.2 % (0-1); EOSINOPHILS # (AUTO) 0.1 X10'3 (0-0.9); EOSINOPHILS % (AUTO) 0.7 % (0-6); HEMATOCRIT 22.4 % (42.0-52.0); HEMOGLOBIN 7.1 g/dl (14.0-17.9); LYMPHOCYTES # (AUTO) 0.5 X10'3 (1.1-4.8); LYMPHOCYTES % (AUTO) 5.4 % (21-51); MEAN CORPUSCULAR HEMOGLOBIN 26.5 PG (27.0-31.0); MEAN CORPUSCULAR HGB CONC 31.8 g/dL (33.0-36.5); MEAN CORPUSCULAR VOLUME 83.2 FL (78-98); MEAN PLATELET VOLUME 9.5 FL (7.4-10.4); MONOCYTES # (AUTO) 0.8 X10'3 (0-0.9); MONOCYTES % (AUTO) 8.2 % (2-12); NEUTROPHILS # (AUTO) 8.7 X10'3 (1.8-7.7); NEUTROPHILS % (AUTO) 85.5 % (42-75); PLATELET COUNT 69 X10'3 (140-440); RED BLOOD COUNT 2.69 X10'6 (4.70-6.10); RED CELL DISTRIBUTION WIDTH 19.7 % (11.5-14.5); WHITE BLOOD COUNT 10.2 X10'3 (4.5-11.0)
[2021-08-04] MEDS ORDERED: VANCOMYCIN LEVEL IV ONE (03:00)
[2021-08-04 03:11] LABS: ALBUMIN 2.4 G/DL (3.4-5.0); ANION GAP 13 (8-16); BLOOD UREA NITROGEN 87 MG/DL (7-18); BUN/CREATININE RATIO 28.4 (5.4-32.0); CALCIUM 7.7 MG/DL (8.5-10.1); CHLORIDE 109 MMOL/L (99-107); CREATININE 3.06 MG/DL (0.60-1.10); GLUCOSE 144 MG/DL (70-104); MAGNESIUM 2.8 MG/DL (1.5-2.4); POTASSIUM 3.8 MMOL/L (3.5-5.1); SODIUM 148 MMOL/L (135-145); TOTAL CARBON DIOXIDE 25.8 MMOL/L (24-32); VANCOMYCIN,RANDOM 23.9 UG/ML; eGFR 21 ML/MIN
[2021-08-04 03:31] LABS: PHOSPHORUS 4.7 MG/DL (2.3-4.5)
[2021-08-04] MEDS: dexmedetomidine/D5W 100mL 100 ML IV SCH (04:49)
--- NOTE | 2021-08-04 06:09 | NUR ---
Problems reprioritized. Patient report given, questions answered & plan of care reviewed with EVONNE Benítez
[2021-08-04] MEDS ORDERED: VANCOMYCIN 1GM/200ML IVPB 200 ML IV PRN (07:40)
[2021-08-04] MEDS: thiamine 100mg tablet OGT SCH (07:53)
[2021-08-04] MEDS: folic acid 1mg tablet OGT SCH (07:53)
[2021-08-04] MEDS: midodrine 5mg tablet PO SCH ×3 (07:53→16:00)
[2021-08-04] MEDS: POTASSIUM CHLORIDE 20 MEQ/15 ML oral solution PO SCH ×2 (07:53→19:42)
[2021-08-04] MEDS: rifaximin 550mg tablet OGT SCH ×2 (07:53→19:42)
[2021-08-04] MEDS: QUEtiapine 25mg tablet PO SCH ×2 (07:53→19:42)
[2021-08-04] MEDS: linagliptin 5mg tablet OGT SCH (07:53)
[2021-08-04] MEDS: MULTIVIT-MIN/FERROUS GLUCONATE 9 MG/15 ML LIQUID OGT SCH (07:53)
[2021-08-04] MEDS: pantoprazole 40MG/NS 100ML BAG 100 ML IV SCH (07:54)
[2021-08-04] MEDS: hydrocortisone sod succ/PF 100mg/2ml inj. IV SCH (07:54)
[2021-08-04] MEDS: furosemide 40mg/4ml inj IV SCH (07:54)
[2021-08-04] MEDS: piperacillin/tazo 3.375gm/50ml 50 ML IV SCH ×2 (07:55)
[2021-08-04] MEDS: docusate sodium 100mg/10ml UD cup OGT SCH ×2 (08:00→19:43)
--- NOTE | 2021-08-04 12:18 | NUR ---
F/u: No documentation of PO intake though per RN at critical care rounds pt is consuming less than 25% PO intake of meals. Pt continues with TF at goal rate with GRV WNL. Recommend continuing with TF until PO intake significantly improves. Addendum: 08/04/21 at [address] Amended: Links added.
--- NOTE | 2021-08-04 18:15 | NUR ---
Patient in room CICU 2011. I have received report from Jeyson DOULGASS with Catherine DOUGLASS and had the opportunity to ask questions and assume patient care.
[2021-08-04] MEDS: insulin Lispro (HumaLOG) vial - multi-dose SQ SCH (19:54)
[2021-08-04] MEDS ORDERED: furosemide 20 MG/2 ML vial IV SCH (20:00)
--- NOTE | 2021-08-04 20:30 | NUR ---
Report called to receiving nurse Catherine DOUGLASS. Transferred via hospital bed, Belongings ( phone on patient, all other items sent home with family) Special Issues communicated to receiving nurse. NG tube removed at 1930 patient tolerated well and tolerating diet.
--- NOTE | 2021-08-04 20:30 | NUR ---
Orientee documentation: I have reviewed and agree with all interventions, assessments performed and documented by Phyllis DOUGLASS . [place] Medication Administration: For this medication-pass time frame, all medication were reviewed, dispensed, administered and documented per hospital policy by Phyllis DOUGLASS .
--- NOTE | 2021-08-04 21:22 | NUR ---
Pt arrived to unit, transferred to hospital bed via slide board with assist from ADJUSTER PIANO ACTION. Pt alert and oriented. Connected pt to bedside monitoring.
[2021-08-04] MEDS: doxazosin mesylate 2mg tablet OGT SCH (22:02)
--- NOTE | 2021-08-04 22:26 | NUR ---
Called Dr. Huang dental ceramist health education director. Pt stopped his tube feeding today and switched to puree diet. On level 6 per BS protocol. Lantus dose is at 29 units. MD advised to give dose even though tube feed is off. Will continue to monitor pt.
[2021-08-04] MEDS: insulin glargine (Lantus) pen - multi-dose SQ SCH (22:52)
[2021-08-05] VITALS (11 sets, daily range): BP systolic 116–140; BP diastolic 62–75
[2021-08-05] MEDS ORDERED: DEXTROSE 15 GM of carb/4 tabs (each vial/BOTTLE has 4 tablets) PO PRN ×2 (01:09)
[2021-08-05] MEDS ORDERED: acetaminophen 325mg tablet PO PRN (01:10)
[2021-08-05] MEDS ORDERED: sennosides 8.6mg tablet PO PRN (01:11)
[2021-08-05] MEDS ORDERED: VANCOMYCIN LEVEL IV SCH (03:00)
--- NOTE | 2021-08-05 06:21 | NUR ---
Problems reprioritized. Patient report given, questions answered & plan of care reviewed with Bria DOUGLASS.
[2021-08-05] MEDS: docusate sod 100mg capsule PO SCH ×2 (08:00→20:01)
[2021-08-05] MEDS: POTASSIUM CHLORIDE 20 MEQ/15 ML oral solution PO SCH ×3 (08:00→20:02)
[2021-08-05 08:20] LABS: BASOPHILS % (AUTO) 0.2 % (0-1); EOSINOPHILS # (AUTO) 0.2 X10'3 (0-0.9); EOSINOPHILS % (AUTO) 1.6 % (0-6); HEMATOCRIT 27.3 % (42.0-52.0); HEMOGLOBIN 8.8 g/dl (14.0-17.9); LYMPHOCYTES # (AUTO) 0.7 X10'3 (1.1-4.8); LYMPHOCYTES % (AUTO) 5.6 % (21-51); MEAN CORPUSCULAR HEMOGLOBIN 26.7 PG (27.0-31.0); MEAN CORPUSCULAR HGB CONC 32.1 g/dL (33.0-36.5); MEAN CORPUSCULAR VOLUME 83.2 FL (78-98); MEAN PLATELET VOLUME 8.7 FL (7.4-10.4); NEUTROPHILS # (AUTO) 10.8 X10'3 (1.8-7.7); NEUTROPHILS % (AUTO) 84.6 % (42-75); PLATELET COUNT 68 X10'3 (140-440); RED BLOOD COUNT 3.28 X10'6 (4.70-6.10); RED CELL DISTRIBUTION WIDTH 18.3 % (11.5-14.5); WHITE BLOOD COUNT 12.7 X10'3 (4.5-11.0)
[2021-08-05 08:33] LABS: ALBUMIN 2.6 G/DL (3.4-5.0); ANION GAP 18 (8-16); BLOOD UREA NITROGEN 85 MG/DL (7-18); BUN/CREATININE RATIO 27.7 (5.4-32.0); CALCIUM 8.1 MG/DL (8.5-10.1); CHLORIDE 106 MMOL/L (99-107); CREATININE 3.07 MG/DL (0.60-1.10); GLUCOSE 147 MG/DL (70-104); MAGNESIUM 2.3 MG/DL (1.5-2.4); POTASSIUM 4.2 MMOL/L (3.5-5.1); PREALBUMIN 15.4 MG/DL (19-36); SODIUM 148 MMOL/L (135-145); TOTAL CARBON DIOXIDE 24.4 MMOL/L (24-32); eGFR 21 ML/MIN
[2021-08-05 08:36] LABS: PHOSPHORUS 6.2 MG/DL (2.3-4.5)
[2021-08-05] MEDS: midodrine 5mg tablet PO SCH ×3 (10:06→16:00)
[2021-08-05] MEDS: thiamine 100mg tablet PO SCH (10:06)
[2021-08-05] MEDS: pantoprazole 40mg Tablet.DR PO SCH (10:06)
[2021-08-05] MEDS: multivitamins, therapeutics tablet PO SCH (10:06)
[2021-08-05] MEDS: folic acid 1mg tablet PO SCH (10:07)
[2021-08-05] MEDS: rifaximin 550mg tablet PO SCH ×2 (10:07→20:01)
[2021-08-05] MEDS: QUEtiapine 25mg tablet PO SCH ×2 (10:07→20:01)
[2021-08-05] MEDS: hydrocortisone sod succ/PF 100mg/2ml inj. IV SCH (10:08)
--- NOTE | 2021-08-05 11:29 | NUR ---
Message: Jen [phone] Re: Bertin Brown in 310. Pt takes [place]ink at home and is having pain now. Would like an order for Ne[place]ink 10.
[2021-08-05] MEDS: linagliptin 5mg tablet PO SCH (12:12)
--- NOTE | 2021-08-05 13:08 | NUR ---
PAGER ID: [phone] MESSAGE: Jen [phone] re: Bertin Brown in 310. Pt takes [place] at home and is c/o pain now. Can I get an order for [place] 10?
[2021-08-05] MEDS: insulin Lispro (HumaLOG) vial - multi-dose SQ SCH ×2 (14:01→21:49)
[2021-08-05 15:43] LABS: HEMATOCRIT 26.9 % (42.0-52.0); HEMOGLOBIN 8.6 g/dl (14.0-17.9); MEAN CORPUSCULAR HEMOGLOBIN 26.9 PG (27.0-31.0); MEAN CORPUSCULAR HGB CONC 32.2 g/dL (33.0-36.5); MEAN CORPUSCULAR VOLUME 83.4 FL (78-98); MEAN PLATELET VOLUME 8.1 FL (7.4-10.4); PLATELET COUNT 65 X10'3 (140-440); RED BLOOD COUNT 3.22 X10'6 (4.70-6.10); WHITE BLOOD COUNT 11.4 X10'3 (4.5-11.0)
[2021-08-05] MEDS: doxazosin mesylate 2mg tablet PO SCH (20:01)
[2021-08-05] MEDS: insulin glargine (Lantus) pen - multi-dose SQ SCH (21:53)
--- NOTE | 2021-08-05 23:15 | NUR ---
I called Dr. Mon about keeping the telemetry unit on past the 24hours since his heart rate is in the 110-120's and he said to keep the telemetry unit on.
[2021-08-06 02:00] VITALS: BP 142/76
[2021-08-06 05:38] LABS: BASOPHILS % (AUTO) 0.2 % (0-1); EOSINOPHILS # (AUTO) 0.2 X10'3 (0-0.9); EOSINOPHILS % (AUTO) 2.1 % (0-6); HEMATOCRIT 26.4 % (42.0-52.0); HEMOGLOBIN 8.5 g/dl (14.0-17.9); LYMPHOCYTES # (AUTO) 0.6 X10'3 (1.1-4.8); LYMPHOCYTES % (AUTO) 7.1 % (21-51); MEAN CORPUSCULAR HEMOGLOBIN 27.3 PG (27.0-31.0); MEAN CORPUSCULAR HGB CONC 32.3 g/dL (33.0-36.5); MEAN CORPUSCULAR VOLUME 84.7 FL (78-98); MEAN PLATELET VOLUME 8.4 FL (7.4-10.4); MONOCYTES # (AUTO) 0.9 X10'3 (0-0.9); MONOCYTES % (AUTO) 9.9 % (2-12); NEUTROPHILS # (AUTO) 7.2 X10'3 (1.8-7.7); NEUTROPHILS % (AUTO) 80.7 % (42-75); PLATELET COUNT 70 X10'3 (140-440); RED BLOOD COUNT 3.11 X10'6 (4.70-6.10); RED CELL DISTRIBUTION WIDTH 18.3 % (11.5-14.5); WHITE BLOOD COUNT 8.9 X10'3 (4.5-11.0)
[2021-08-06 05:50] LABS: ALBUMIN 2.3 G/DL (3.4-5.0); ANION GAP 15 (8-16); BLOOD UREA NITROGEN 74 MG/DL (7-18); BUN/CREATININE RATIO 25.7 (5.4-32.0); CALCIUM 8.3 MG/DL (8.5-10.1); CHLORIDE 110 MMOL/L (99-107); CREATININE 2.88 MG/DL (0.60-1.10); GLUCOSE 96 MG/DL (70-104); MAGNESIUM 2.3 MG/DL (1.5-2.4); POTASSIUM 3.7 MMOL/L (3.5-5.1); SODIUM 149 MMOL/L (135-145); TOTAL CARBON DIOXIDE 24.5 MMOL/L (24-32); eGFR 22 ML/MIN
[2021-08-06 05:56] LABS: PHOSPHORUS 6.1 MG/DL (2.3-4.5); TRIGLYCERIDES 62 MG/DL (20-135)
[2021-08-06 06:00] VITALS: BP 144/77
[2021-08-06] MEDS: thiamine 100mg tablet PO SCH (07:59)
[2021-08-06] MEDS: hydrocortisone sod succ/PF 100mg/2ml inj. IV SCH (07:59)
[2021-08-06] MEDS: linagliptin 5mg tablet PO SCH (07:59)
[2021-08-06] MEDS: docusate sod 100mg capsule PO SCH ×2 (08:00→19:52)
[2021-08-06] MEDS: folic acid 1mg tablet PO SCH (08:00)
[2021-08-06] MEDS: HYDROcodone/acetaminophen 5mg/325mg tablet PO PRN ×2 (08:00→20:04)
[2021-08-06] MEDS: QUEtiapine 25mg tablet PO SCH ×2 (08:00→19:52)
[2021-08-06] MEDS: midodrine 5mg tablet PO SCH (08:00)
[2021-08-06] MEDS: rifaximin 550mg tablet PO SCH ×2 (08:01→19:52)
[2021-08-06] MEDS: multivitamins, therapeutics tablet PO SCH (08:01)
[2021-08-06] MEDS: POTASSIUM CHLORIDE 20 MEQ/15 ML oral solution PO SCH ×2 (08:01→20:00)
[2021-08-06] MEDS: pantoprazole 40mg Tablet.DR PO SCH (08:01)
[2021-08-06 10:00] VITALS: BP 140/75
--- NOTE | 2021-08-06 12:16 | NUR ---
PAGER ID: [phone] MESSAGE: Jen [phone] re Bertin Brown in 310. Pt's SBP has been in the 140's. Do you still want me to give the scheduled Midodrine? its scheduled TID.
--- NOTE | 2021-08-06 12:35 | NUR ---
Reassessment: Per toddler nanny NGT was removed 08/04. Pt continues on pureed diet, now with thin liquids per ST recs though PO intake remains poor with average 29% PO intake of meals not meeting estimated nutrient needs. Recommend placing NGT and resuming TF IF PO intake does not improve, will leave TF recommendations below. Per EMR pt A/O x 2 and confused, DM education remains deferred at this time. LBM 08/05. Pt not receiving dialysis at this time per MD note. Will continue to follow closely and make recommendations as appropriate. Recommendations: 1) Continue pureed CHO controlled diet with thin liquids per ST 2) Encourage PO intake and assist with meals given AMS 3) IF PO intake does not improve, consider NGT placement for TF: Continuous TF using Glucerna 1.2 with 70 mL/hr goal rate to provide 1680 mL total volume/day, 2016 kcal, 101 g protein, and 1352 mL water; IF decreased kidney function, consider Nepro 1.8 with 50 mL/hr goal rate to provide 1200 mL total volume/day, 2160 kcal, 97 g protein, and 872 mL water 4) IF TF, additional water flush per MD given renal function 5) Bowel care per rx 6) Continue routine Thiamine and Folic acid and MVI in view of EtOH hx 7) DM education once stable; A1c 10.9% and admit with DKA with BG 1218 mg/dL Addendum: 08/06/21 at [address] Amended: Links added.
[2021-08-06] MEDS: insulin Lispro (HumaLOG) vial - multi-dose SQ SCH ×2 (13:27→19:10)
[2021-08-06 14:00] VITALS: BP 128/73
[2021-08-06 17:11] LABS: % IRON SATURATION 15 % (11-46); IRON 40 UG/DL (53-167); TOTAL IRON BINDING CAPACITY 261 UG/DL (259-388)
[2021-08-06 18:00] VITALS: BP 125/77
[2021-08-06] MEDS: doxazosin mesylate 2mg tablet PO SCH (19:53)
[2021-08-06] MEDS: insulin glargine (Lantus) pen - multi-dose SQ SCH (21:17)
[2021-08-06 22:00] VITALS: BP 141/77
[2021-08-07] MEDS: HYDROcodone/acetaminophen 5mg/325mg tablet PO PRN (01:07)
[2021-08-07 02:00] VITALS: BP 124/75
[2021-08-07 06:00] VITALS: BP 147/78
--- NOTE | 2021-08-07 06:25 | NUR ---
Problems reprioritized. Patient report given, questions answered & plan of care reviewed with EVONNE Langston.
[2021-08-07 06:45] LABS: BASOPHILS % (AUTO) 0.5 % (0-1); EOSINOPHILS # (AUTO) 0.2 X10'3 (0-0.9); EOSINOPHILS % (AUTO) 3.8 % (0-6); HEMATOCRIT 25.2 % (42.0-52.0); HEMOGLOBIN 8.1 g/dl (14.0-17.9); LYMPHOCYTES # (AUTO) 0.6 X10'3 (1.1-4.8); LYMPHOCYTES % (AUTO) 9.4 % (21-51); MEAN CORPUSCULAR HEMOGLOBIN 27.2 PG (27.0-31.0); MEAN CORPUSCULAR HGB CONC 32.3 g/dL (33.0-36.5); MEAN CORPUSCULAR VOLUME 84.2 FL (78-98); MEAN PLATELET VOLUME 8.1 FL (7.4-10.4); MONOCYTES # (AUTO) 0.6 X10'3 (0-0.9); MONOCYTES % (AUTO) 9.1 % (2-12); NEUTROPHILS # (AUTO) 5.1 X10'3 (1.8-7.7); NEUTROPHILS % (AUTO) 77.2 % (42-75); PLATELET COUNT 60 X10'3 (140-440); RED BLOOD COUNT 2.99 X10'6 (4.70-6.10); RED CELL DISTRIBUTION WIDTH 18.3 % (11.5-14.5); WHITE BLOOD COUNT 6.6 X10'3 (4.5-11.0)
[2021-08-07 06:48] LABS: ALBUMIN 2.6 G/DL (3.4-5.0); ANION GAP 10 (8-16); BLOOD UREA NITROGEN 65 MG/DL (7-18); BUN/CREATININE RATIO 26.1 (5.4-32.0); CHLORIDE 114 MMOL/L (99-107); CREATININE 2.49 MG/DL (0.60-1.10); GLUCOSE 98 MG/DL (70-104); MAGNESIUM 2.3 MG/DL (1.5-2.4); POTASSIUM 3.4 MMOL/L (3.5-5.1); SODIUM 151 MMOL/L (135-145); TOTAL CARBON DIOXIDE 26.9 MMOL/L (24-32); eGFR 26 ML/MIN
[2021-08-07 06:52] LABS: PHOSPHORUS 5.5 MG/DL (2.3-4.5); TRIGLYCERIDES 56 MG/DL (20-135)
[2021-08-07] MEDS ORDERED: hydrocortisone sod succ/PF 100mg/2ml inj. IV SCH (08:00)
[2021-08-07] MEDS: insulin Lispro (HumaLOG) vial - multi-dose SQ SCH ×2 (08:54→12:45)
[2021-08-07] MEDS: linagliptin 5mg tablet PO SCH (08:55)
[2021-08-07] MEDS: thiamine 100mg tablet PO SCH (08:56)
[2021-08-07] MEDS: pantoprazole 40mg Tablet.DR PO SCH (08:56)
[2021-08-07] MEDS: folic acid 1mg tablet PO SCH (08:56)
[2021-08-07] MEDS: multivitamins, therapeutics tablet PO SCH (08:56)
[2021-08-07] MEDS: docusate sod 100mg capsule PO SCH (08:56)
[2021-08-07] MEDS: QUEtiapine 25mg tablet PO SCH (08:56)
[2021-08-07] MEDS: rifaximin 550mg tablet PO SCH (08:57)
[2021-08-07] MEDS: POTASSIUM CHLORIDE 20 MEQ/15 ML oral solution PO SCH (08:57)
[2021-08-07 10:00] VITALS: BP 144/78
[2021-08-07] MEDS ORDERED: dextrose 5%-water 1,000 ML IV SCH (10:05)
[2021-08-07] MEDS ORDERED: metoprolol tartrate 12.5mg (1/2 tablet) PO SCH (10:05)
[2021-08-07] MEDS ORDERED: magnesium 2GM in 50ml NS 50 ML IV PRN (11:10)
[2021-08-07] MEDS ORDERED: magnesium Cl slow-release 64mg tablet PO PRN (11:10)
[2021-08-07] MEDS ORDERED: potassium CL 10mEq/100ml bag 100 ML IV PRN (11:10)
[2021-08-07] MEDS ORDERED: potassium Cl 20 mEq SR tablet PO PRN (11:10)
[2021-08-07] MEDS ORDERED: magnesium 4gm in 100ml NS 100 ML IV PRN (11:10)
[2021-08-07] MEDS: potassium Cl 20 mEq SR tablet PO PRN ×2 (11:32→17:05)
[2021-08-07 14:00] VITALS: BP 140/83
--- NOTE | 2021-08-07 18:06 | NUR ---
Problems reprioritized. Patient report given, questions answered & plan of care reviewed with Danay DOUGLASS.
--- NOTE | 2021-08-07 19:37 | NUR ---
Pt called nurse in the room stating that he wants to leave, nurse listened to patient concerns. Patient stated that doctor told him to walk 150 feet with walker and he did so now he can go. Dayshift nurse informed me it took 2 assist to help patient with ambulating and he was extremely weak. Patient adamant about leaving at this moment, not listening to staff. Doctor informed, instructed me to educate patient, but we can't keep him against his will. Nurse called family, per patient request making sure he had a ride. Nurse assisted patient with dressing, IV lines and PICC lines removed. Belongings given and phone weigher and charger. AMA paper signed and placed in chart. Patient transported via wheelchair to meet family at entrance. Sons helped patient into truck.
[2021-08-07] MEDS ORDERED: K and/or MAG REPLACEMENT MC SCH (20:00)
[2021-08-07] MEDS ORDERED: tamsulosin 0.4mg capsule PO SCH (21:00)
== END 2021-08-07 19:30 | disposition left against medical advice (07) | DRG 207 ==
LOC: ER 03:08 → ED HOLD 08:13 → CICU 2S 09:00 → MED 3N 08-04 21:05 → PCU 3S 08-07 15:07
PROVIDERS: ADMIT Psychiatry & Neurology Neurocritical Care; ATTEND Psychiatry & Neurology Neurocritical Care
PROC: 5A1955Z Respiratory Ventilation, Greater than 96 Consecutive Hours (ICD-10-PCS; principal; 2021-07-24)
PROC: 0BH17EZ Insertion of Endotracheal Airway into Trachea, Via Natural or Artificial Opening (ICD-10-PCS; 2021-07-24)
PROC: 5A1D70Z Performance of Urinary Filtration, Intermittent, Less than 6 Hours Per Day (ICD-10-PCS; 2021-07-24)
PROC: 30233N1 Transfusion of Nonautologous Red Blood Cells into Peripheral Vein, Percutaneous Approach (ICD-10-PCS; 2021-07-24)
PROC: 06HY33Z Insertion of Infusion Device into Lower Vein, Percutaneous Approach (ICD-10-PCS; 2021-07-24)
PROC: 06HY33Z Insertion of Infusion Device into Lower Vein, Percutaneous Approach (ICD-10-PCS; 2021-07-24)
PROC: B54CZZA Ultrasonography of Left Lower Extremity Veins, Guidance (ICD-10-PCS; 2021-07-24)
PROC: 04HY32Z Insertion of Monitoring Device into Lower Artery, Percutaneous Approach (ICD-10-PCS; 2021-07-24)
PROC: 4A133B1 Monitoring of Arterial Pressure, Peripheral, Percutaneous Approach (ICD-10-PCS; 2021-07-24)
PROC: 4A133J1 Monitoring of Arterial Pulse, Peripheral, Percutaneous Approach (ICD-10-PCS; 2021-07-24)
PROC: 0D9670Z Drainage of Stomach with Drainage Device, Via Natural or Artificial Opening (ICD-10-PCS; 2021-07-24)
PROC: 30233R1 Transfusion of Nonautologous Platelets into Peripheral Vein, Percutaneous Approach (ICD-10-PCS; 2021-07-25)
PROC: 0W3P8ZZ Control Bleeding in Gastrointestinal Tract, Via Natural or Artificial Opening Endoscopic (ICD-10-PCS; 2021-07-25)
PROC: 5A1D70Z Performance of Urinary Filtration, Intermittent, Less than 6 Hours Per Day (ICD-10-PCS; 2021-07-26)
PROC: 5A1D70Z Performance of Urinary Filtration, Intermittent, Less than 6 Hours Per Day (ICD-10-PCS; 2021-07-28)
PROC: 02HV33Z Insertion of Infusion Device into Superior Vena Cava, Percutaneous Approach (ICD-10-PCS; 2021-07-29)
PROC: B548ZZA Ultrasonography of Superior Vena Cava, Guidance (ICD-10-PCS; 2021-07-29)
PROC: 5A1D70Z Performance of Urinary Filtration, Intermittent, Less than 6 Hours Per Day (ICD-10-PCS; 2021-07-30)
PROC: 5A0945A Assistance with Respiratory Ventilation, 24-96 Consecutive Hours, High Flow/Velocity Cannula (ICD-10-PCS; 2021-08-02)
PROC: 02HV33Z Insertion of Infusion Device into Superior Vena Cava, Percutaneous Approach (ICD-10-PCS; 2021-08-02)
PROC: B548ZZA Ultrasonography of Superior Vena Cava, Guidance (ICD-10-PCS; 2021-08-02)
DX: J96.01 Acute respiratory failure with hypoxia (principal); E11.10 Type 2 diabetes mellitus with ketoacidosis without coma; K26.4 Chronic or unspecified duodenal ulcer with hemorrhage; E43 Unspecified severe protein-calorie malnutrition; K76.7 Hepatorenal syndrome; N17.0 Acute kidney failure with tubular necrosis; R57.8 Other shock; R57.1 Hypovolemic shock; G93.41 Metabolic encephalopathy; G92.8 Other toxic encephalopathy; D62 Acute posthemorrhagic anemia; D61.818 Other pancytopenia; D68.9 Coagulation defect, unspecified; J90 Pleural effusion, not elsewhere classified; J98.11 Atelectasis; Z99.11 Dependence on respirator [ventilator] status; K76.6 Portal hypertension; E87.0 Hyperosmolality and hypernatremia; E72.20 Disorder of urea cycle metabolism, unspecified; K70.31 Alcoholic cirrhosis of liver with ascites; F32.A Depression, unspecified; Z20.822 Contact with and (suspected) exposure to COVID-19; K21.9 Gastro-esophageal reflux disease without esophagitis; T38.3X5A Adverse effect of insulin and oral hypoglycemic [antidiabetic] drugs, initial encounter; B19.20 Unspecified viral hepatitis C without hepatic coma; E11.42 Type 2 diabetes mellitus with diabetic polyneuropathy; R34 Anuria and oliguria; Z53.29 Procedure and treatment not carried out because of patient's decision for other reasons; E83.51 Hypocalcemia; E83.42 Hypomagnesemia; I12.9 Hypertensive chronic kidney disease with stage 1 through stage 4 chronic kidney disease, or unspecified chronic kidney disease; N18.9 Chronic kidney disease, unspecified; E78.00 Pure hypercholesterolemia, unspecified; E86.9 Volume depletion, unspecified; E87.6 Hypokalemia; K72.10 Chronic hepatic failure without coma; F10.10 Alcohol abuse, uncomplicated; N40.0 Benign prostatic hyperplasia without lower urinary tract symptoms; Z90.49 Acquired absence of other specified parts of digestive tract; Z99.2 Dependence on renal dialysis; Z79.84 Long term (current) use of oral hypoglycemic drugs; Z91.030 Bee allergy status; Y92.89 Other specified places as the place of occurrence of the external cause; Z79.899 Other long term (current) drug therapy; Z68.27 Body mass index [BMI] 27.0-27.9, adult; Z78.1 Physical restraint status
CPT/HCPCS: 31500; 36415; 36430; 36569; 36600; 43243; 70450; 71045; 74018; 76700; 76942; 80048; 80053; 80202; 81001; 82009; 82140; 82803; 82948; 83036; 83540; 83550; 83605; 83735; 84100; 84132; 84134; 84478; 85007; 85008; 85018; 85025; 85027; 85610; 85730; 86870; 86880; 86885; 86900; 86901; 86902; 86905; 86920; 86922; 87070; 87340; 87635; 92508; 92616; 93005; 94002; 94003; 94760; 94799; 96365; 96368; 96375; 97110; 97116; 97161; 97530; 99152; 99153; 99291; 99292; C9113; C9803; G0257; G0378; J0153; J0171; J0610; J0696; J1630; J1644; J1720; J1815; J1940; J2248; J2250; J2270; J2354; J2543; J2597; J2704; J3010; J3370; J3411; J3430; J3475; J3480; J3490; J7030; J7050; J7060; J7070; J7120; P9016; P9035; P9047; Q4081; Q9967

== ENCOUNTER 2021-08-12 11:34 | Emergency (ER) | payer MEDICARE, MEDICAID ==
[~2021-08-12] VITALS: Ht 167.6 cm; Wt 86.0 kg
[~2021-08-12 11:34] MED LIST changes: +FLO0.4C PO; +HYDR-3972 PO; -HYDR-4353 PO; -INSU100V9 SQ; +LISI5TAB22 PO; -MORP-92 PO; +OMEP20CA15 PO; +SITA25TA3 PO
[2021-08-12 13:45] LABS: BASOPHILS % (AUTO) 0.5 % (0-1); EOSINOPHILS # (AUTO) 0.2 X10'3 (0-0.9); HEMOGLOBIN 8.8 g/dl (14.0-17.9); LYMPHOCYTES # (AUTO) 0.3 X10'3 (1.1-4.8); MEAN CORPUSCULAR HEMOGLOBIN 27.6 PG (27.0-31.0); MEAN CORPUSCULAR HGB CONC 31.4 g/dL (33.0-36.5); MEAN CORPUSCULAR VOLUME 87.9 FL (78-98); MEAN PLATELET VOLUME 8.9 FL (7.4-10.4); MONOCYTES # (AUTO) 0.3 X10'3 (0-0.9); NEUTROPHILS # (AUTO) 3.7 X10'3 (1.8-7.7); NEUTROPHILS % (AUTO) 81.5 % (42-75); PLATELET COUNT 63 X10'3 (140-440); RED BLOOD COUNT 3.19 X10'6 (4.70-6.10); RED CELL DISTRIBUTION WIDTH 19.1 % (11.5-14.5); WHITE BLOOD COUNT 4.6 X10'3 (4.5-11.0)
[2021-08-12 14:00] VITALS: BP 125/75
[2021-08-12 14:02] LABS: PLATELET ESTIMATE DECREASED
[2021-08-12 14:03] LABS: ANISOCYTOSIS 2+; POIKILOCYTOSIS FEW
[2021-08-12 14:10] LABS: ALANINE AMINOTRANSFERASE 52 U/L (12-78); ALBUMIN 2.6 G/DL (3.4-5.0); ALBUMIN/GLOBULIN RATIO 0.8 (1.1-1.5); ALKALINE PHOSPHATASE 140 IU/L (46-116); ANION GAP 15 (8-16); ASPARTATE AMINO TRANSFERASE 26 U/L (10-37); BLOOD UREA NITROGEN 36 MG/DL (7-18); BUN/CREATININE RATIO 19.5 (5.4-32.0); CALCIUM 8.3 MG/DL (8.5-10.1); CHLORIDE 100 MMOL/L (99-107); CREATININE 1.85 MG/DL (0.60-1.10); POTASSIUM 4.5 MMOL/L (3.5-5.1); SODIUM 134 MMOL/L (135-145); TOTAL CARBON DIOXIDE 19.5 MMOL/L (24-32); TOTAL PROTEIN 5.7 G/DL (6.4-8.2); eGFR 37 ML/MIN
[2021-08-12 14:35] LABS: GLUCOSE 613 MG/DL (70-104)
[2021-08-12] MEDS ORDERED: insulin regular, human 10 units/0.1 ml syringe SQ ONE (14:45)
--- NOTE | 2021-08-12 15:05 | NUR ---
Pt given and understands d/c instructions. Left the department in his motorized scooter.
== END 2021-08-12 15:07 | disposition home or self-care (01) ==
LOC: ER 11:35
DX: K74.60 Unspecified cirrhosis of liver (principal); R18.8 Other ascites; E78.00 Pure hypercholesterolemia, unspecified; I10 Essential (primary) hypertension; K21.9 Gastro-esophageal reflux disease without esophagitis; E11.9 Type 2 diabetes mellitus without complications; F32.A Depression, unspecified; Z86.19 Personal history of other infectious and parasitic diseases; Z87.11 Personal history of peptic ulcer disease; Z90.89 Acquired absence of other organs; Z72.89 Other problems related to lifestyle; Z91.030 Bee allergy status; Z79.899 Other long term (current) drug therapy
CPT/HCPCS: 36415; 80053; 82948; 85008; 85025; 85610; 99284; J1815

== ENCOUNTER 2021-08-13 08:18 | Inpatient (IN) | payer MEDICARE, MEDICAID ==
[2021-08-13] VITALS (7 sets, daily range): BP systolic 117–160; BP diastolic 66–80
[~2021-08-13] VITALS: Ht 167.6 cm; Wt 81.3 kg
[2021-08-13] MEDS: normal saline 1000ml 1,000 ML IV SCH ×2 (03:30→10:27)
[2021-08-13] MEDS ORDERED: pantoprazole 40MG/NS 100ML BAG 100 ML IV ONE (08:30)
[2021-08-13] MEDS ORDERED: pantoprazole IV 80 MG in normal saline 100ml IV soln 100 ML IV ONE (08:30)
--- NOTE | 2021-08-13 08:30 | NUR ---
coffee ground emesis x 1 danyel 300ml.
[2021-08-13] MEDS ORDERED: octreotide inj. 1,250 MCG in normal saline 250ml IV soln 250 ML IV ONE (08:35)
[2021-08-13] MEDS ORDERED: octreotide 100mcg/1 ml ampule IV ONE (08:35)
[2021-08-13] MEDS ORDERED: ondansetron/PF 4mg/2ml inj IV ONE (08:50)
[2021-08-13 08:54] LABS: ALANINE AMINOTRANSFERASE 51 U/L (12-78); ALBUMIN 2.4 G/DL (3.4-5.0); ALKALINE PHOSPHATASE 111 IU/L (46-116); ASPARTATE AMINO TRANSFERASE 34 U/L (10-37); BLOOD UREA NITROGEN 61 MG/DL (7-18); BUN/CREATININE RATIO 26.8 (5.4-32.0); CALCIUM 8.4 MG/DL (8.5-10.1); CHLORIDE 95 MMOL/L (99-107); CREATININE 2.28 MG/DL (0.60-1.10); LIPASE 106 U/L (73-393); POTASSIUM 4.9 MMOL/L (3.5-5.1); SODIUM 133 MMOL/L (135-145); TOTAL PROTEIN 4.8 G/DL (6.4-8.2); eGFR 29 ML/MIN
[2021-08-13 08:56] LABS: ANION GAP 21 (8-16); BILIRUBIN,TOTAL 3.2 MG/DL (0.1-1.0)
[2021-08-13 08:57] LABS: GLUCOSE 644 MG/DL (70-104)
[2021-08-13 09:30] LABS: BASOPHILS # (AUTO) 0.1 X10'3 (0-0.2); BASOPHILS % (AUTO) 0.7 % (0-1); EOSINOPHILS # (AUTO) 0.1 X10'3 (0-0.9); LYMPHOCYTES # (AUTO) 0.6 X10'3 (1.1-4.8); LYMPHOCYTES % (AUTO) 8.2 % (21-51); MEAN CORPUSCULAR HGB CONC 30.6 g/dL (33.0-36.5); MEAN CORPUSCULAR VOLUME 91.5 FL (78-98); MEAN PLATELET VOLUME 9.6 FL (7.4-10.4); MONOCYTES # (AUTO) 0.5 X10'3 (0-0.9); MONOCYTES % (AUTO) 6.8 % (2-12); NEUTROPHILS # (AUTO) 6.1 X10'3 (1.8-7.7); NEUTROPHILS % (AUTO) 83.3 % (42-75); PLATELET COUNT 122 X10'3 (140-440); RED BLOOD COUNT 2.25 X10'6 (4.70-6.10); RED CELL DISTRIBUTION WIDTH 20.5 % (11.5-14.5); WHITE BLOOD COUNT 7.4 X10'3 (4.5-11.0)
[2021-08-13 09:40] LABS: HEMATOCRIT 20.6 % (42.0-52.0); HEMOGLOBIN 6.3 g/dl (14.0-17.9)
[2021-08-13 09:42] LABS: APTT 35 SECONDS (22-32)
[2021-08-13] MEDS: pantoprazole 40MG/NS 100ML BAG 100 ML IV SCH ×6 (09:42→23:09)
[2021-08-13 09:50] LABS: ANISOCYTOSIS 3+; HYPOCHROMASIA 1+; PLATELET ESTIMATE DECREASED; POLYCHROMASIA FEW
[2021-08-13 09:51] LABS: SCHISTOCYTES FEW; TARGET CELLS FEW; TEAR DROP CELLS FEW
[2021-08-13] MEDS ORDERED: insulin regular, human 10 units/0.1 ml syringe SQ SCH (09:55)
[2021-08-13] MEDS ORDERED: mag hydrox/Alum hydrox/simeth 30ml oral suspension PO PRN (10:20)
[2021-08-13] MEDS ORDERED: DEXTROSE 15 GM of carb/4 tabs (each vial/BOTTLE has 4 tablets) PO PRN ×2 (10:20)
[2021-08-13] MEDS ORDERED: magnesium Cl slow-release 64mg tablet PO PRN (10:20)
[2021-08-13] MEDS ORDERED: MESSAGE TO PHARMACY PO ONE (10:20)
[2021-08-13] MEDS ORDERED: potassium Cl 20 mEq SR tablet PO PRN ×2 (10:20)
[2021-08-13] MEDS ORDERED: glucagon, human recombinant 1mg kit SUBCUT PRN (10:20)
[2021-08-13] MEDS ORDERED: dextrose 50%-water 50ml dispensing syringe IV PRN ×3 (10:20→14:45)
[2021-08-13] MEDS ORDERED: magnesium 2GM in 50ml NS 50 ML IV PRN (10:20)
[2021-08-13] MEDS ORDERED: magnesium 4gm in 100ml NS 100 ML IV PRN (10:20)
[2021-08-13] MEDS ORDERED: acetaminophen 325mg tablet PO PRN (10:20)
[2021-08-13] MEDS ORDERED: potassium CL 10mEq/100ml bag 100 ML IV PRN (10:20)
--- NOTE | 2021-08-13 10:26 | NUR ---
blood not ready per blood bank.
--- NOTE | 2021-08-13 12:09 | NUR ---
no reaction from BT.
--- NOTE | 2021-08-13 12:41 | NUR ---
assisting RN with pt care, Dr Hughes at bedside, accu check is 577, Dr Hughes gave verbal order for insulin 18 units SC, report to Leonie DOUGLASS
[2021-08-13] MEDS ORDERED: insulin regular, human 10 units/0.1 ml syringe SQ ONE (12:45)
--- NOTE | 2021-08-13 13:06 | NUR ---
18 units of insulin given sq per dr alcocer. will continue to monitor and switch to iv insulin if unsuccessful
--- NOTE | 2021-08-13 14:41 | NUR ---
TELEPHONE ORDER OBTAINED FROM FR. HEATON, ORDERED IF BG > 400MG/DL, START INSULIN 3UNITS/HOUR THEN CHECK BG EVERY HOUR.
[2021-08-13] MEDS: ondansetron/PF 4mg/2ml inj IV PRN ×2 (15:22→20:37)
--- NOTE | 2021-08-13 16:15 | NUR ---
Mr Brown is being admitted to room 3025B. He has been assessed as indicated. He denies pain. But he states that he takes [place] at home. He is on Sandostain, Protonix, NS and blood is being transfused. He also need insulin drip started. His blood sugar is 504. He has been noted to be both pleasant and cooperative. All infusions have been started. He has been noted to have an open skin tear to the top of his left thigh. this has been photo graphed. he has been made as comfortable as possible. A condom cath has been placed. He has no s/s of distress or discomfort
[2021-08-13] MEDS: Insulin Reg/NS 100units/100mL 100 ML IV SCH ×5 (16:44→23:09)
[2021-08-13] MEDS ORDERED: HYDROcodone/acetaminophen 10/325mg tab PO PRN (17:05)
[2021-08-13] MEDS ORDERED: potassium CL 20mEq in D5-1/2NS 1,000 ML IV PRN (17:35)
[2021-08-13] MEDS ORDERED: sodium phosphate inj. 15 MMOL in dextrose 5%-water 250 ML IV PRN (17:35)
[2021-08-13] MEDS ORDERED: normal saline 1000ml 1,000 ML IV SCH (17:35)
[2021-08-13] MEDS ORDERED: sodium bicarbonate (8.4%) inj. 50 MEQ in dextrose 5% water 500ml 250 ML IV PRN (17:35)
[2021-08-13] MEDS ORDERED: sodium phosphate inj. 30 MMOL in dextrose 5%-water 250 ML IV PRN (17:35)
[2021-08-13] MEDS ORDERED: Neutra Phos packet PO PRN (17:35)
[2021-08-13] MEDS ORDERED: sodium bicarbonate (8.4%) inj. 100 MEQ in dextrose 5% water 500ml 500 ML IV PRN (17:35)
--- NOTE | 2021-08-13 18:15 | NUR ---
Patient in room PCU 3025. I have received report from Mala DOUGLASS, and had the opportunity to ask questions and assume patient care.
[2021-08-13 19:38] LABS: HEMATOCRIT 24.9 % (42.0-52.0); HEMOGLOBIN 8.2 g/dl (14.0-17.9); MEAN CORPUSCULAR HEMOGLOBIN 29.3 PG (27.0-31.0); MEAN CORPUSCULAR HGB CONC 32.9 g/dL (33.0-36.5); MEAN CORPUSCULAR VOLUME 89.2 FL (78-98); MEAN PLATELET VOLUME 8.4 FL (7.4-10.4); PLATELET COUNT 84 X10'3 (140-440); RED BLOOD COUNT 2.79 X10'6 (4.70-6.10); RED CELL DISTRIBUTION WIDTH 19.3 % (11.5-14.5); WHITE BLOOD COUNT 7.4 X10'3 (4.5-11.0)
[2021-08-13 19:43] LABS: ALBUMIN 2.4 G/DL (3.4-5.0); ANION GAP 12 (8-16); BLOOD UREA NITROGEN 66 MG/DL (7-18); BUN/CREATININE RATIO 30.3 (5.4-32.0); CALCIUM 8.4 MG/DL (8.5-10.1); CHLORIDE 103 MMOL/L (99-107); CREATININE 2.18 MG/DL (0.60-1.10); GLUCOSE 428 MG/DL (70-104); PHOSPHORUS 3.4 MG/DL (2.3-4.5); POTASSIUM 4.4 MMOL/L (3.5-5.1); SODIUM 137 MMOL/L (135-145); TOTAL CARBON DIOXIDE 22.5 MMOL/L (24-32); eGFR 31 ML/MIN
[2021-08-13] MEDS: docusate sod 100mg capsule PO SCH (20:00)
[2021-08-13] MEDS: K and/or MAG REPLACEMENT MC SCH (20:00)
--- NOTE | 2021-08-13 20:00 | NUR ---
Recd pt aaox3 in bed , no distress noted , insulin drip in place , panto and other IV infusing without difficulty.blood sugar Q1h continue , monitor pt for hypo and hyperglycemic .will continue to monitor pt's care .
[2021-08-13] MEDS: insulin Lispro (HumaLOG) vial - multi-dose SQ SCH (20:07)
[2021-08-13] MEDS: insulin glargine (Lantus) pen - multi-dose SQ SCH (21:00)
[2021-08-14] VITALS (15 sets, daily range): BP systolic 89–158; BP diastolic 56–90
--- NOTE | 2021-08-14 01:13 | NUR ---
insulin stop blood sugar 109
[2021-08-14] MEDS: pantoprazole 40MG/NS 100ML BAG 100 ML IV SCH ×3 (03:43→22:26)
[2021-08-14] MEDS: ondansetron/PF 4mg/2ml inj IV PRN ×2 (06:59→13:07)
[2021-08-14] MEDS: K and/or MAG REPLACEMENT MC SCH ×2 (08:00→21:36)
[2021-08-14 08:58] LABS: HEMATOCRIT 23.1 % (42.0-52.0); HEMOGLOBIN 7.6 g/dl (14.0-17.9); MEAN CORPUSCULAR HEMOGLOBIN 29.6 PG (27.0-31.0); MEAN CORPUSCULAR VOLUME 89.6 FL (78-98); MEAN PLATELET VOLUME 7.9 FL (7.4-10.4); PLATELET COUNT 77 X10'3 (140-440); RED BLOOD COUNT 2.57 X10'6 (4.70-6.10); RED CELL DISTRIBUTION WIDTH 19.8 % (11.5-14.5)
[2021-08-14] MEDS: lisinopril 5mg tablet PO SCH (09:03)
[2021-08-14] MEDS: tamsulosin 0.4mg capsule PO SCH (09:03)
[2021-08-14] MEDS: docusate sod 100mg capsule PO SCH ×2 (09:04→21:36)
[2021-08-14 09:30] LABS: ALANINE AMINOTRANSFERASE 47 U/L (12-78); ALBUMIN 2.3 G/DL (3.4-5.0); ALKALINE PHOSPHATASE 94 IU/L (46-116); ANION GAP 14 (8-16); ASPARTATE AMINO TRANSFERASE 34 U/L (10-37); BILIRUBIN,TOTAL 3.5 MG/DL (0.1-1.0); BLOOD UREA NITROGEN 61 MG/DL (7-18); BUN/CREATININE RATIO 28.4 (5.4-32.0); CALCIUM 8.1 MG/DL (8.5-10.1); CHLORIDE 106 MMOL/L (99-107); CHOL/HDL RATIO 4.6 (0.00-4.99); CHOLESTEROL 102 MG/DL (0-200); CREATININE 2.15 MG/DL (0.60-1.10); GLUCOSE 189 MG/DL (70-104); HDL CHOLESTEROL 22 MG/DL (35-60); LDL CHOLESTEROL 59 MG/DL (50-100); MAGNESIUM 1.7 MG/DL (1.5-2.4); PHOSPHORUS 2.9 MG/DL (2.3-4.5); POTASSIUM 3.8 MMOL/L (3.5-5.1); SODIUM 140 MMOL/L (135-145); TOTAL CARBON DIOXIDE 20.1 MMOL/L (24-32); TOTAL PROTEIN 4.6 G/DL (6.4-8.2); TRIGLYCERIDES 74 MG/DL (20-135); eGFR 31 ML/MIN
[2021-08-14] MEDS ORDERED: octreotide inj. 1,250 MCG in normal saline 250ml IV soln 243.75 ML IV SCH (10:45)
[2021-08-14] MEDS: HYDROcodone/acetaminophen 5mg/325mg tablet PO PRN ×2 (12:33→17:40)
--- NOTE | 2021-08-14 13:53 | NUR ---
Malnutrition consult: Pt reports 2-13 lb wt loss with decreased appetite per malnutrition risk screen with RN. Pt currently on a clear liquid diet, pending documentation of PO intake. Current wt of 81 kg is not scaled and pt with recent scaled wt h/o 75.4-80.5 kg 07/27-08/05 at recent admit where patient's estimated nutrient needs were being met with TF. Noted pt receiving dialysis at previous admit which is likely to cause weight fluctuations. Pt with no documented decrease in muscle strength or significant edema this visit. Pt currently lacks a minimum of two criteria for malnutrition. Pt admit for GIB with hematemesis and DKA. Noted pt signed out AMA at previous visit and did not receive DM education with A1c of 10.9%. BG 644 mg/dL this visit and A1c 7.8% which was performed at [facility] per EMR. Pt documented with nausea and retching emesis. Pt would benefit from DM education once more stable. LBM 08/13. Will continue to follow closely. Recommendations: 1) Advance to CHO controlled diet as medically indicated 2) Bowel care per rx 3) Scaled weight this admit; weekly scaled weights thereafter 4) DM education once stable; BG 644 mg/dL on admit with A1c 7.8% though recently admit with BG 1218 mg/dL with A1c 10.9% 07/24 Addendum: 08/14/21 at [address] Amended: Links added.
[2021-08-14 15:31] LABS: MEAN CORPUSCULAR HEMOGLOBIN 29.8 PG (27.0-31.0); MEAN CORPUSCULAR HGB CONC 32.7 g/dL (33.0-36.5); MEAN CORPUSCULAR VOLUME 91.1 FL (78-98); MEAN PLATELET VOLUME 8.4 FL (7.4-10.4); PLATELET COUNT 61 X10'3 (140-440); RED CELL DISTRIBUTION WIDTH 19.5 % (11.5-14.5); WHITE BLOOD COUNT 4.3 X10'3 (4.5-11.0)
[2021-08-14 15:34] LABS: HEMATOCRIT 20.1 % (42.0-52.0); HEMOGLOBIN 6.6 g/dl (14.0-17.9)
--- NOTE | 2021-08-14 15:37 | NUR ---
Paged Neyda Nelson regarding patients critical Hgb 6.6, hct 20.1
--- NOTE | 2021-08-14 18:20 | NUR ---
Patient in room PCU 3025. I have received report from Lena DOUGLASS, and had the opportunity to ask questions and assume patient care.
--- NOTE | 2021-08-14 18:47 | NUR ---
Problems reprioritized. Patient report given, questions answered & plan of care reviewed with Amna RN, patient receiving blood, but stable..
--- NOTE | 2021-08-14 20:00 | NUR ---
Recd pt aaox3 resting quietly in bed with blood infusing, no S/S of reaction noted .blood sugar check q1h pt have insulin drip infusing. will continue to monitor pt.
[2021-08-14 20:24] LABS: ALANINE AMINOTRANSFERASE 45 U/L (12-78); ALBUMIN 2.3 G/DL (3.4-5.0); ALKALINE PHOSPHATASE 88 IU/L (46-116); ANION GAP 8 (8-16); ASPARTATE AMINO TRANSFERASE 36 U/L (10-37); BILIRUBIN,TOTAL 3.3 MG/DL (0.1-1.0); BLOOD UREA NITROGEN 56 MG/DL (7-18); BUN/CREATININE RATIO 26.4 (5.4-32.0); CALCIUM 7.4 MG/DL (8.5-10.1); CHLORIDE 110 MMOL/L (99-107); CREATININE 2.12 MG/DL (0.60-1.10); GLUCOSE 141 MG/DL (70-104); POTASSIUM 3.8 MMOL/L (3.5-5.1); SODIUM 139 MMOL/L (135-145); TOTAL CARBON DIOXIDE 21.1 MMOL/L (24-32); TOTAL PROTEIN 4.6 G/DL (6.4-8.2); eGFR 32 ML/MIN
[2021-08-14] MEDS: insulin glargine (Lantus) pen - multi-dose SQ SCH (21:00)
[2021-08-14] MEDS: Insulin Reg/NS 100units/100mL 100 ML IV SCH (21:36)
[2021-08-15] VITALS (10 sets, daily range): BP systolic 96–151; BP diastolic 50–86
[2021-08-15 02:32] LABS: HEMOGLOBIN 8.9 g/dl (14.0-17.9); MEAN CORPUSCULAR HEMOGLOBIN 29.3 PG (27.0-31.0); MEAN CORPUSCULAR HGB CONC 32.8 g/dL (33.0-36.5); MEAN CORPUSCULAR VOLUME 89.2 FL (78-98); MEAN PLATELET VOLUME 8.6 FL (7.4-10.4); RED BLOOD COUNT 3.03 X10'6 (4.70-6.10); RED CELL DISTRIBUTION WIDTH 17.4 % (11.5-14.5); WHITE BLOOD COUNT 3.8 X10'3 (4.5-11.0)
[2021-08-15 02:36] LABS: PLATELET COUNT 48 X10'3 (140-440)
--- NOTE | 2021-08-15 02:38 | NUR ---
Nurse notified of pt. Critical result Platelets 48.She will page the doctor.We will continue with pt. care.
[2021-08-15] MEDS: pantoprazole 40MG/NS 100ML BAG 100 ML IV SCH ×5 (04:37→19:19)
--- NOTE | 2021-08-15 06:30 | NUR ---
Problems reprioritized. Patient report given,Alisia DOUGLASS, questions answered & plan of care reviewed with .
[2021-08-15 07:24] LABS: HEMATOCRIT 28.7 % (42.0-52.0); HEMOGLOBIN 9.7 g/dl (14.0-17.9); MEAN CORPUSCULAR HEMOGLOBIN 30.3 PG (27.0-31.0); MEAN CORPUSCULAR HGB CONC 33.8 g/dL (33.0-36.5); MEAN CORPUSCULAR VOLUME 89.5 FL (78-98); MEAN PLATELET VOLUME 8.2 FL (7.4-10.4); RED BLOOD COUNT 3.21 X10'6 (4.70-6.10); RED CELL DISTRIBUTION WIDTH 17.6 % (11.5-14.5); WHITE BLOOD COUNT 4.6 X10'3 (4.5-11.0)
[2021-08-15 07:38] LABS: ALANINE AMINOTRANSFERASE 41 U/L (12-78); ALBUMIN 2.3 G/DL (3.4-5.0); ALKALINE PHOSPHATASE 89 IU/L (46-116); ANION GAP 13 (8-16); ASPARTATE AMINO TRANSFERASE 32 U/L (10-37); BLOOD UREA NITROGEN 50 MG/DL (7-18); BUN/CREATININE RATIO 24.9 (5.4-32.0); CALCIUM 7.7 MG/DL (8.5-10.1); CHLORIDE 108 MMOL/L (99-107); CREATININE 2.01 MG/DL (0.60-1.10); GLUCOSE 215 MG/DL (70-104); MAGNESIUM 1.6 MG/DL (1.5-2.4); POTASSIUM 4.1 MMOL/L (3.5-5.1); SODIUM 140 MMOL/L (135-145); TOTAL CARBON DIOXIDE 19.3 MMOL/L (24-32); eGFR 34 ML/MIN
[2021-08-15 07:42] LABS: TOTAL PROTEIN 4.5 G/DL (6.4-8.2)
[2021-08-15] MEDS ORDERED: fentaNYL/PF 50MCG/1 ML 2ML syringe ONE (07:44)
[2021-08-15] MEDS ORDERED: MIDAZolam 1 MG/ML 5ML VIAL ONE (07:45)
[2021-08-15] MEDS ORDERED: LIDOcaine Viscous 15ml cup ONE (07:45)
[2021-08-15] MEDS ORDERED: diphenhydrAMINE 50 mg/ml inj ONE (07:45)
[2021-08-15 07:46] LABS: PLATELET COUNT 50 X10'3 (140-440)
[2021-08-15] MEDS: K and/or MAG REPLACEMENT MC SCH ×2 (08:00→20:13)
[2021-08-15] MEDS: HYDROcodone/acetaminophen 5mg/325mg tablet PO PRN ×2 (10:09→21:59)
[2021-08-15] MEDS: tamsulosin 0.4mg capsule PO SCH (10:10)
[2021-08-15] MEDS: docusate sod 100mg capsule PO SCH ×2 (10:10→20:00)
[2021-08-15] MEDS: lisinopril 5mg tablet PO SCH (10:11)
[2021-08-15] MEDS: insulin Lispro (HumaLOG) vial - multi-dose SQ SCH ×3 (10:31→20:24)
--- NOTE | 2021-08-15 10:59 | NUR ---
Provided pt w/ written and verbal DM ed w/ RD contact info Addendum: 08/15/21 at [address] Amended: Links added.
[2021-08-15 15:52] LABS: HEMATOCRIT 31.4 % (42.0-52.0); HEMOGLOBIN 10.3 g/dl (14.0-17.9); MEAN CORPUSCULAR HEMOGLOBIN 29.8 PG (27.0-31.0); MEAN CORPUSCULAR HGB CONC 32.7 g/dL (33.0-36.5); MEAN PLATELET VOLUME 8.5 FL (7.4-10.4); PLATELET COUNT 56 X10'3 (140-440); RED BLOOD COUNT 3.45 X10'6 (4.70-6.10); RED CELL DISTRIBUTION WIDTH 17.9 % (11.5-14.5); WHITE BLOOD COUNT 4.2 X10'3 (4.5-11.0)
[2021-08-15] MEDS: insulin glargine (Lantus) pen - multi-dose SQ SCH (21:00)
[2021-08-15 21:01] LABS: HEMOGLOBIN 9.6 g/dl (14.0-17.9); MEAN CORPUSCULAR HEMOGLOBIN 29.7 PG (27.0-31.0); MEAN CORPUSCULAR VOLUME 89.9 FL (78-98); PLATELET COUNT 65 X10'3 (140-440); RED BLOOD COUNT 3.23 X10'6 (4.70-6.10); WHITE BLOOD COUNT 4.8 X10'3 (4.5-11.0)
[2021-08-16 02:00] VITALS: BP 91/50
[2021-08-16 06:00] VITALS: BP 129/74
--- NOTE | 2021-08-16 06:20 | NUR ---
Problems reprioritized. Patient report given,To Alisia DOUGLASS, questions answered & plan of care reviewed with .
[2021-08-16] MEDS: K and/or MAG REPLACEMENT MC SCH (08:00)
[2021-08-16] MEDS: pantoprazole 40MG/NS 100ML BAG 100 ML IV SCH (08:00)
[2021-08-16 08:44] LABS: HEMATOCRIT 31.1 % (42.0-52.0); MEAN CORPUSCULAR HEMOGLOBIN 29.7 PG (27.0-31.0); MEAN CORPUSCULAR HGB CONC 32.3 g/dL (33.0-36.5); MEAN CORPUSCULAR VOLUME 92.2 FL (78-98); MEAN PLATELET VOLUME 8.3 FL (7.4-10.4); PLATELET COUNT 59 X10'3 (140-440); RED BLOOD COUNT 3.37 X10'6 (4.70-6.10); RED CELL DISTRIBUTION WIDTH 18.1 % (11.5-14.5); WHITE BLOOD COUNT 4.6 X10'3 (4.5-11.0)
[2021-08-16] MEDS: docusate sod 100mg capsule PO SCH (08:54)
[2021-08-16] MEDS: tamsulosin 0.4mg capsule PO SCH (08:54)
[2021-08-16 08:56] LABS: ALANINE AMINOTRANSFERASE 39 U/L (12-78); ALBUMIN 2.3 G/DL (3.4-5.0); ALBUMIN/GLOBULIN RATIO 0.9 (1.1-1.5); ALKALINE PHOSPHATASE 98 IU/L (46-116); ANION GAP 12 (8-16); ASPARTATE AMINO TRANSFERASE 32 U/L (10-37); BILIRUBIN,TOTAL 3.7 MG/DL (0.1-1.0); BLOOD UREA NITROGEN 44 MG/DL (7-18); BUN/CREATININE RATIO 21.7 (5.4-32.0); CALCIUM 8.1 MG/DL (8.5-10.1); CHLORIDE 106 MMOL/L (99-107); CREATININE 2.03 MG/DL (0.60-1.10); GLUCOSE 205 MG/DL (70-104); MAGNESIUM 1.8 MG/DL (1.5-2.4); POTASSIUM 4.3 MMOL/L (3.5-5.1); SODIUM 136 MMOL/L (135-145); TOTAL CARBON DIOXIDE 18.5 MMOL/L (24-32); TOTAL PROTEIN 4.8 G/DL (6.4-8.2); eGFR 33 ML/MIN
[2021-08-16] MEDS: lisinopril 5mg tablet PO SCH (08:59)
[2021-08-16 11:00] VITALS: BP 102/65
[2021-08-16] MEDS: insulin Lispro (HumaLOG) vial - multi-dose SQ SCH ×2 (11:03→15:38)
[2021-08-16] MEDS ORDERED: PANT40TA54 PO (12:22)
[2021-08-16 15:00] VITALS: BP 102/64
--- NOTE | 2021-08-16 15:40 | NUR ---
PAGER ID: [phone] MESSAGE: [email or web address], [place], [place] [id number] IS NOW APPEALING HIS DISCHARGE. CASE MANAGEMENT IS AWARE.THANK YOU.
== END 2021-08-16 19:00 | disposition home or self-care (01) | DRG 380 ==
LOC: ER 08:19 → ED HOLD 10:23 → PCU 3S 15:37
PROVIDERS: ADMIT Family Medicine; ATTEND Family Medicine
PROC: 30233N1 Transfusion of Nonautologous Red Blood Cells into Peripheral Vein, Percutaneous Approach (ICD-10-PCS; 2021-08-13)
PROC: 0DB68ZX Excision of Stomach, Via Natural or Artificial Opening Endoscopic, Diagnostic (ICD-10-PCS; principal; 2021-08-15)
DX: K22.11 Ulcer of esophagus with bleeding (principal); E11.10 Type 2 diabetes mellitus with ketoacidosis without coma; E43 Unspecified severe protein-calorie malnutrition; N17.9 Acute kidney failure, unspecified; D62 Acute posthemorrhagic anemia; R18.8 Other ascites; K76.6 Portal hypertension; I85.00 Esophageal varices without bleeding; K26.4 Chronic or unspecified duodenal ulcer with hemorrhage; K31.89 Other diseases of stomach and duodenum; N18.9 Chronic kidney disease, unspecified; D69.6 Thrombocytopenia, unspecified; E11.22 Type 2 diabetes mellitus with diabetic chronic kidney disease; E83.52 Hypercalcemia; I12.9 Hypertensive chronic kidney disease with stage 1 through stage 4 chronic kidney disease, or unspecified chronic kidney disease; E11.42 Type 2 diabetes mellitus with diabetic polyneuropathy; E83.51 Hypocalcemia; E78.00 Pure hypercholesterolemia, unspecified; B19.20 Unspecified viral hepatitis C without hepatic coma; F32.A Depression, unspecified; T18.2XXA Foreign body in stomach, initial encounter; K21.9 Gastro-esophageal reflux disease without esophagitis; K72.90 Hepatic failure, unspecified without coma; E78.5 Hyperlipidemia, unspecified; K74.60 Unspecified cirrhosis of liver; N40.0 Benign prostatic hyperplasia without lower urinary tract symptoms; Z82.0 Family history of epilepsy and other diseases of the nervous system; Z87.891 Personal history of nicotine dependence; Z90.49 Acquired absence of other specified parts of digestive tract; Z91.19 Patient's noncompliance with other medical treatment and regimen; Z68.28 Body mass index [BMI] 28.0-28.9, adult; Z91.030 Bee allergy status; Z79.899 Other long term (current) drug therapy
CPT/HCPCS: 36415; 36430; 43239; 71045; 80048; 80053; 80061; 82948; 83036; 83690; 83735; 84100; 85008; 85025; 85027; 85610; 85730; 86870; 86885; 86900; 86901; 86920; 86922; 87081; 96365; 96368; 96375; 96376; 97116; 97161; 97530; 97760; 99152; 99284; 99291; A4620; C9113; G0378; J1200; J1815; J2250; J2354; J2405; J3010; J3480; J3490; J7030; J7050; P9016

== ENCOUNTER 2023-01-26 07:22 | Day surgery (SDC) | payer MEDICARE, MEDICAID ==
[2023-01-25 14:07] LABS: ALBUMIN 3.5 G/DL (3.4-5.0); ALKALINE PHOSPHATASE 91 IU/L (46-116); BLOOD UREA NITROGEN 26 MG/DL (7-18); BUN/CREATININE RATIO 13.5 (10.0-20.0); CALCIUM 8.9 MG/DL (8.5-10.1); CHLORIDE 101 MMOL/L (99-107); CREATININE 1.92 MG/DL (0.60-1.10); PRE OP ALT 12 U/L (30-65); PRE OP ANION GAP 6 (8-16); PRE OP AST 15 U/L (10-37); PRE OP BILIRUB, TOTAL 0.7 MG/DL (0.0-1.0); PRE OP POTASSIUM 4.5 MMOL/L (3.4-5.1); PRE OP SODIUM 133 MMOL/L (135-145); TOTAL CARBON DIOXIDE 25.9 MMOL/L (24-32); eGFR 35 ML/MIN
[2023-01-25 14:20] LABS: BASOPHILS % (AUTO) 0.2 % (0-1); EOSINOPHILS # (AUTO) 0.2 X10'3 (0-0.9); EOSINOPHILS % (AUTO) 3.7 % (0-6); LYMPHOCYTES # (AUTO) 0.7 X10'3 (1.1-4.8); MEAN CORPUSCULAR HEMOGLOBIN 28.7 PG (27.0-31.0); MEAN CORPUSCULAR HGB CONC 33.4 g/dL (33.0-36.5); MEAN CORPUSCULAR VOLUME 86.1 FL (78-98); MONOCYTES # (AUTO) 0.4 X10'3 (0-0.9); MONOCYTES % (AUTO) 8.1 % (2-12); NEUTROPHILS # (AUTO) 3.8 X10'3 (1.8-7.7); PRE OP HEMATOCRIT 34.8 % (42.0-52.0); PRE OP HEMOGLOBIN 11.6 g/dL (14.0-17.9); PRE OP WHITE BLOOD COUNT 5.1 10'3 (4.8-10.8); RED BLOOD COUNT 4.04 X10'6 (4.70-6.10); RED CELL DISTRIBUTION WIDTH 15.9 % (11.5-14.5)
[2023-01-25 14:30] LABS: PRE OP PLATELET COUNT 49 X10'3 (140-440)
[2023-01-25 14:40] LABS: PRE OP GLUCOSE 207 MG/DL (70-104)
[2023-01-25 17:09] LABS: ELLIPTOCYTES 2+; PLATELET ESTIMATE DECREASED
[2023-01-25 17:10] LABS: POIKILOCYTOSIS 2+; SCHISTOCYTES FEW
[2023-01-26] VITALS (8 sets, daily range): BP systolic 101–117; BP diastolic 54–74; PULSE 60–67; RESP 10–16; TEMP 98.1; O2SAT 95–100
[~2023-01-26] VITALS: Ht 167.6 cm; Wt 71.9 kg
[~2023-01-26 07:22] MED LIST changes: +EMPA10TA PO; +ERGO500093 PO; +FURO20TA4 PO; +GLIP5TAB13 PO; +INSU100I31 SQ; +INSU100I38 SQ; +LYR75C PO; -OMEP20CA15 PO; +OMEP20CA16 PO; +cefazolin 2gm/D5W 100mL 100 ML IV ONE; +famotidine 20mg tablet PO ONE; +ringers solution, lacted 1,000 ML IV SCH
[2023-01-26] MEDS ORDERED: BUPIVAcaine/PF 2.5mg/ml (0.25%) 10ml vial ONE ×2 (09:10→09:43)
[2023-01-26] MEDS ORDERED: ringers solution, lacted 1,000 ML IV SCH (09:25)
[2023-01-26] MEDS ORDERED: morphine 2 MG/ML inj. syringe IV PRN (09:25)
[2023-01-26] MEDS ORDERED: morphine 4 MG/ML inj SYRINge IV PRN (09:25)
[2023-01-26] MEDS ORDERED: ondansetron/PF 4mg/2ml inj IV PRN (09:25)
[2023-01-26] MEDS ORDERED: enalaprilat dihydrate 2.5mg/2ml vial IV PRN (09:25)
[2023-01-26] MEDS ORDERED: MIDAZolam 1mg/ml 10ml vial ONE (09:27)
[2023-01-26] MEDS ORDERED: fentaNYL/PF 50MCG/1 ML 2ML syringe ONE (09:27)
[2023-01-26] MEDS ORDERED: LIDOcaine 0.5% (5mg/ml) 50ml vial ONE (09:45)
[2023-01-26] MEDS ORDERED: LIDOcaine 1%/PF 5ML 10 MG/ML VIAL ONE ×2 (09:45)
--- NOTE | 2023-01-26 10:05 | NUR ---
[facility], accompanied by Anesthesiologist NATALIE and report given by Anesthesiologist. PT PRESENT ON 6L VIA MASK. VSS. PATIENT IS AROUSABLE BY NAME AND DOES NOT C/O PAIN OR NAUSEA AT THIS TIME. NO S/S OF DISTRESS. LEFT ARM/WRIST ELVATED AND ICE APPLIED. DRESSING AND WRAP CDI. LR RUNNING THRU PIV. SCD'S ON BILATERALLY. WILL CONTINUE TO ASSESS.
--- NOTE | 2023-01-26 11:15 | NUR ---
PT STABLE FOR D/C PER MD ORDERS. ALL D/C PAPERWORK HAS BEEN REVIEWED WITH PATIENT AND ALL QUESTIONS, COMMENTS, AND CONCERNS WERE ANSWERED AT THIS TIME. NO C/O PAIN OR NAUSEA. NO S/S OF DISTRESS. LEFT WRIST AND ARM DRESSING CDI AND COVERED WITH TATUM BANDAGE. PT UNDERSTANDS THE IMPORTANCE OF FOLLOWING D/C INSTRUCTIONS. SUPPLIED ICE PACK X 2 TO PATIENT. PATIENT WAS ABLE TO AMBULATE TO BATHROOM THEN INTO W/C WITH MINIMAL ASSISTANCE. PATIENT WAS TRANSFERRED TO PRIVATE VEHICLE WITHOUT INCIDENT. FAMILY, [place] DROVE HOME. ALL PERSONAL BELONGINGS SENT WITH PATIENT.
== END 2023-01-26 11:15 | disposition home or self-care (01) ==
LOC: PAS 07:22
PROVIDERS: ATTEND Orthopaedic Surgery Hand Surgery
DX: G56.02 Carpal tunnel syndrome, left upper limb (principal); G56.22 Lesion of ulnar nerve, left upper limb; E11.621 Type 2 diabetes mellitus with foot ulcer; E11.610 Type 2 diabetes mellitus with diabetic neuropathic arthropathy; E11.69 Type 2 diabetes mellitus with other specified complication; M86.9 Osteomyelitis, unspecified; I10 Essential (primary) hypertension; Z79.899 Other long term (current) drug therapy; Z87.891 Personal history of nicotine dependence; Z79.84 Long term (current) use of oral hypoglycemic drugs; Z98.41 Cataract extraction status, right eye; Z98.42 Cataract extraction status, left eye; Z98.890 Other specified postprocedural states; Z86.19 Personal history of other infectious and parasitic diseases; Z87.19 Personal history of other diseases of the digestive system
CPT/HCPCS: 29848; 36415; 64718; 80053; 82948; 85025; J0690; J2250; J2405; J3010; J3490; J7030; J7120; Z7506; Z7512; 85008; A4215; A7000